=== PATIENT | male | born 1945 | race Caucasian/White ===

== ENCOUNTER 2019-03-21 10:55 | Inpatient (IN) | payer MEDICARE ==
[~2019-03-21] VITALS: Ht 177.8 cm; Wt 99.8 kg
[~2019-03-21 10:55] MED LIST: ALIGN4 MG PO; FISH OIL PO; FLOMAX0.4 MG PO; FLUDROCORTISON0.1 MG PO; FLUOXETINE PO; LEVOTHYROXINE50 MCG PO; MIDODRINE HCL5 MG PO; OXYBUTYNIN CHLOR5 MG PO; PRILOSEC PO
--- OUTSIDE RECORDS SUMMARY | 2019-03-21 11:02 | XMS REPORT ---
Author [facility] Address Unknown Phone Unavailable Care Team Providers Care Japanese Professor Name Role Phone LINDA LOZANO Unavailable Unavailable PELON ROSALINA Unavailable Unavailable Payers Payer Name Policy Type Policy Number Effective Date Expiration Date Problems This patient has no known problems. Allergies, Adverse Reactions, Alerts Allergy Name Allergy Type Status Severity Reaction(s) Onset Date Inactive Date Treating Clinician Comments diazepam DA Active MO 2018-05-19 00:00:00 hydrocodone DA Active SV 2018-05-19 00:00:00 tramadol DA Active SV 2018-05-19 00:00:00 hydromorphone DA Active U 2018-04-16 00:00:00 ceftriaxone DA Active MO 2017-12-22 00:00:00 Medications This patient has no known medications. Results Test Description Test Time Test Comments Text Results Atomic Results Result Comments CHEST 2 VIEWS 2019-03-20 17:02:00 [facility] [address] [place] [address] Patient Name: TAISHA VILLALTA MR #: [id number] : 1945 Age/Sex: 74/M Req #: [id number] [facility] Physician: Ordered by: LINDA LOZANO MD Report #: [id number] Location: OR Room/Bed: Procedure: [id number] DX/CHEST 2 VIEWS Exam Date: 03/20/19 Exam Time: 1550 REPORT STATUS: Signed EXAMINATION: CHEST 2 VIEWS INDICATION: Pre-operative COMPARISON: Chest radiograph of 08/15/2015 FINDINGS: LINES/TUBES:Right chest port with catheter tip in the superior vena cava. LUNGS:The lungs are well-inflated. No focal consolidation or pulmonary edema. PLEURA:No pleural effusion or pneumothorax. MEDIASTINUM:The cardiomediastinal silhouette appears normal in size and shape. Atherosclerotic calcifications of the thoracic aorta. BONES/SOFT TISSUES:No acute osseous injury. ABDOMEN:No free air under the diaphragm. IMPRESSION: No focal pneumonia or pulmonary edema. Signed by: Levi Bran MD on 03/20/2019 5:03 PM Dictated By: LEVI BRAN MD 02 Transcribed By: HMEA on 03/20/191702 COPY TO: LINDA LOZANO MD BRAIN/MENINGES 2019-02-02 16:59:00 RUN DATE: 02/02/19 [facility] PAGE 1 RUN TIME: 1659 Specimen Inquiry RUN USER: INTERFACE PATIENT: TAISHA VILLALTA LOC: DINA U #: [id number] AGE/SX: 74/M ROOM: [facility] RE01/29/19REG DR: Rosalina Mcnamara MD : 45 BED: A DIS: 02/01/19 STATUS: DIS IN TLOC: SPEC #: [id number] RECD: 01/29/19 STATUS: ANMOL RE #: [id number] MAYANK: 01/29/19 [facility] DR: Rosalina Mcnamara MD ENTERED: 01/29/19 SP TYPE: BRAIN OTHR DR: Higinio Leonardo MD ORDERED: GROSS COPIES TO: Rosalina Mcnamara MD [address] [place] [address] Higinio Leonardo MD [address] [place] [address] MARKERS: FROZEN SECTIONS PROCEDURES: GROSS (01/29/19) TISSUES: 1. PITUITARY GLAND, NOS - TUMOR 2. PITUITARY GLAND, NOS - TUMOR COMMENT The sections show a monomorphic proliferation of cells suggesting adenoma. The case was sent in consultation to Dr. Higinio Greer at [facility]. In his report he describes a monomorphic population of tumor cells with diffuse proliferation and focal pseudopapillary appearance. Focal fibrosis is noted. No adenohypophysial tissue is identified. Immunoperoxidase stains for prolactin, growth hormone, ACTH and TSH are reported to be negative in the tumor cells. Very rare cells are positive for p53. The MIB-1 labeling index is 1.6%. There is diffuse immunopositivity of tumor cells for FSH. 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 No atypical features are identified. FINAL DIAGNOSIS Pituitary, transsphenoidal hypophysectomy: GONADOTROPH CELL ADENOMA Higinio Greer MD [facility] CONTINUED ON NEXT PAGE RUN DATE: 02/02/19 [facility] PAGE 2 RUN TIME: 1659 Specimen Inquiry RUN USER: INTERFACE SPEC #: [id number] PATIENT: TAISHA VILLALAT #[id number] (Continued) FINAL DIAGNOSIS (Continued) RRB/chepe D 91046, 37295, 14949 MACROSCOPIC Specimen (1) is designated as "pituitary tumor". It consists of pink-li very soft tissue measuring 0.25 x 0.2 x 0.1 cm. A touch prep is made and the tissue is submitted in its entirety for frozen section evaluation (FS1). Pituitary tumor, frozen section and touch prep diagnosis: BLAND MONOMORPHIC PROLIFERATION WITH MILD FROZEN SECTION ARTIFACT, CONSISTENT WITH ADENOMA (RRB) Frozen section diagnosis (FS1): PROLIFERATION OF BLAND CELLS WITH MILD ARTIFACTUAL DISTORTION, DEFER TO PERMANENT The staining of the fresh frozen section is adequate. Specimen (2) is received in formalin, labeled with the patient's name, and identified as "pituitary tumor". It consists of li tissue fragments measuring 0.7 x 0.4 x 0.2 cm in aggregate. It is submitted for microscopic evaluation in cassette (2). GROSS PERFORMED AT [facility] [address] [place] [address] [id number] [phone])[phone] MICROSCOPIC This case was sent in consultation to Dr. Higinio Greer with [facility]. Refer to [facility] report [id number] for additional information. 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 No atypical features aer identified. MICROSCOPIC DESCRIPTION: Each of the microscopic slides confirms the presence of a monomorphic population of tumor cells with diffuse proliferation and focal pseudopapillary appearance. Focal fibrosis is also present within the tumor. No adenohypophysial tissue is identified. Immunoperoxidase stains for prolactin, growth hormone, ACTH and TSH are negative in tmor. Very rare tumor cells are postiive for p53. The MIB-1 labeling index is 1.6%. There is diffuse immunopositivity of tumor cells for FSH. Scattered positivie tumor cells, in the usual pattern of gonadotroph cell adenoma, are present throughout hte tumor. PERFORMING SITE Diagnosis performed at: [facility] [address] [place] [address] ------ Signed SIGNATURE ON FILE Cameron Saenz MD 02/02/19 1659 END OF REPORT TISSUE EXAM 2019-02-02 11:03:00 Surgical Pathology Report Case: [id number] Authorizing Provider: Higinio Greer MD Collected: 2019 1134 Ord ering Location: [facility] Laboratory Received: 2019 1135 Pathologist: Higinio Greer MD Specimen: Pituitary, Received 4 slides and 2 blocks from [facility], [place] label [id number] A. PITUITARY, TRANSSPHENOIDAL HYPOPHYSECTOMY (OUTSIDE SLIDE FOR CONSULTATION "[id number]"): - GONADOTROPH CELL ADENOMA, Signing Pathologist Direct Phone Line: [phone] signed by Higinio Greer MD on 02/02/2019 at 11:03 AMThe histopathologic features conform to a gonadotroph cell adenoma. No atypical features are identified.[id number] gentleman with recurrent pituitary macroadenoma. Patient has hhistory of elevated FSH, LH and prolactin levels.Outside slides for consultation ("[id number]")Received are 4 H&E stained slides labeled with patient's name and accession number( "[id number]"). Also received are 2 paraffin tissue blocks with the same accession number.also received is a 1 page consultation letter from Dr. Cameron Saenz MD, [facility] in [facility] referencing the same patient's name and accession number. lso received is a 2 page surgical pathology report with the same patient's name and accession number..Each of the microscopic slides confirms the presence of a monomorphic population of tumor cells with diffuse proliferation and focal pseudopapillary appearance. Focal fibrosis is also present within the tumor. No adenohypophysial tissue is identified. Immunoperoxidase stains for prolactin, growth hormone, ACTH and TSH are negative in tumor. Very rare tumor cells are positive for p53. The MIB-1 labeling index is 1.6%. There is diffuse immunopositivity of tumor cells for FSH. Scattered positive tumor cells, in the usual pattern of a gonadotroph cell adenoma, are present throughout the tumor. The interpretation of this case in cluded the use of immunohistochemistry or special stains.please see microscopic description for the list of individual stainsControl Slides Examined: In-house known positive controls were evaluated along with the test tissue. These control slides run alongside of the patients sample show appropriate staining. Internal positive and negative controls when available are evaluated Immunohistochemistry technical testing was performed at [facility], Pathology Laboratory where it was developed and its performance characteristics were determined. It has not been cleared or approved by the U.S. Food and Drug Administration. The FDA has determined that such clearance or approval is not necessary. The test is used for clinical purposes. It should not be regarded as investigational or for research. This laboratory is certified under the Clinical Laboratory Improvement Amendments of 1988 (CLIA-88) as qualified to perform high complexity clinical laboratory testing.Neoplastic cells are positive for LH and FSH and negative for ACTH, GH, prolactin, TSH and p53. Ki67 proliferation index of 3%. GLUBED 2019-02-01 13:06:00 GLUBED (test code=GLUBED) 145 mg/dL 74-106 Performed by certified catalyst concentration operator at [facility] BASIC METABOLIC [id number] 09:04:00* Test Item Value Reference Range Comments SODIUM (test code=NA) 140 mmol/L 136-145 POTASSIUM (test code=K) 4.4 mmol/L 3.5-5.1 CHLORIDE (test code=CL) 111.0 mmol/L 98-107 CARBON DIOXIDE (test code=CO2) 20.0 mmol/L 21-32 ANION GAP (test code=GAP) 13.4 10-20 GLUCOSE (test code=GLU) 60 mg/dL 74-106 BLOOD UREA NITROGEN (test code=BUN) 39 mg/dL 7-18 GLOMERULAR FILTRATION RATE (test code=GFR) 31 mL/min >=60 Estimated GFR by using Modified MDRD formula.Chronic kidney disease is defined as either kidney damageor GFR <60 mL/min/1.73 m2 for >3 months. CREATININE (test code=CREAT) 2.10 mg/dL 0.7-1.3 BUN/CREATININE RATIO (test code=BUN/CREA) 18.6 10-20 CALCIUM (test code=CA) 8.7 mg/dL 8.5-10.1 COMPREHENSIVE METABOLIC [id number] 09:04:00* Test Item Value Reference Range Comments TOTAL PROTEIN (test code=PROT) 6.6 gram/dL 6.4-8.2 ALBUMIN (test code=ALB) 2.5 g/dL 3.4-5.0 GLOBULIN (test code=GLOB) 4.1 gram/dL 2.7-4.2 ALBUMIN/GLOBULIN RATIO (test code=A/G) 0.6 0.75-1.50 BILIRUBIN TOTAL (test code=BILT) 0.20 mg/dL 0.0-1.0 SGOT/AST (test code=AST) 17 IUnit/L 15-37 SGPT/ALT (test code=ALT) 16 IUnit/L 12-78 ALKALINE PHOSPHATASE TOTAL (test code=ALKP) 104 IUnit/L 45-117 Note change in reference range due to change in reagent. [id number] 09:04:00* Test Item Value Reference Range Comments PHOSPHORUS (test code=PHOS) 3.5 mg/dL 2.5-4.9 [id number] 09:04:00* Test Item Value Reference Range Comments MAGNESIUM (test code=MAG) 2.4 mg/dL 1.8-2.4 BASIC METABOLIC [id number] 08:54:00* Test Item Value Reference Range Comments SODIUM (test code=NA) 140 mmol/L 136-145 POTASSIUM (test code=K) 4.4 mmol/L 3.5-5.1 CHLORIDE (test code=CL) 111.0 mmol/L 98-107 CARBON DIOXIDE (test code=CO2) mmol/L 21-32 ANION GAP (test code=GAP) 10-20 GLUCOSE (test code=GLU) mg/dL 74-106 BLOOD UREA NITROGEN (test code=BUN) mg/dL 7-18 GLOMERULAR FILTRATION RATE (test code=GFR) mL/min >=60 CREATININE (test code=CREAT) mg/dL 0.7-1.3 BUN/CREATININE RATIO (test code=BUN/CREA) 10-20 CALCIUM (test code=CA) mg/dL 8.5-10.1 COMPREHENSIVE METABOLIC [id number] 08:54:00* Test Item Value Reference Range Comments TOTAL PROTEIN (test code=PROT) gram/dL 6.4-8.2 ALBUMIN (test code=ALB) g/dL 3.4-5.0 GLOBULIN (test code=GLOB) gram/dL 2.7-4.2 ALBUMIN/GLOBULIN RATIO (test code=A/G) 0.75-1.50 BILIRUBIN TOTAL (test code=BILT) mg/dL 0.0-1.0 SGOT/AST (test code=AST) IUnit/L 15-37 SGPT/ALT (test code=ALT) IUnit/L 12-78 ALKALINE PHOSPHATASE TOTAL (test code=ALKP) IUnit/L 45-117 [id number] 08:54:00* Test Item Value Reference Range Comments PHOSPHORUS (test code=PHOS) mg/dL 2.5-4.9 [id number] 08:54:00* Test Item Value Reference Range Comments MAGNESIUM (test code=MAG) mg/dL 1.8-2.4 OSMOLALITY [id number] 05:33:00* Test Item Value Reference Range Comments OSMOLALITY SERUM (test code=OSMO) 308 mOsm/kg 275-295 BASIC METABOLIC [id number] 05:31:00* Test Item Value Reference Range Comments SODIUM (test code=NA) 140 mmol/L 136-145 POTASSIUM (test code=K) 4.8 mmol/L 3.5-5.1 CHLORIDE (test code=CL) 110.0 mmol/L 98-107 CARBON DIOXIDE (test code=CO2) 22.0 mmol/L 21-32 ANION GAP (test code=GAP) 12.8 10-20 GLUCOSE (test code=GLU) 135 mg/dL 74-106 BLOOD UREA NITROGEN (test code=BUN) 42 mg/dL 7-18 GLOMERULAR FILTRATION RATE (test code=GFR) 28 mL/min >=60 Estimated GFR by using Modified MDRD formula.Chronic kidney disease is defined as either kidney damageor GFR <60 mL/min/1.73 m2 for >3 months. CREATININE (test code=CREAT) 2.30 mg/dL 0.7-1.3 BUN/CREATININE RATIO (test code=BUN/CREA) 18.5 10-20 CALCIUM (test code=CA) 9.2 mg/dL 8.5-10.1 COMPREHENSIVE METABOLIC [id number] 05:31:00* Test Item Value Reference Range Comments TOTAL PROTEIN (test code=PROT) 7.1 gram/dL 6.4-8.2 ALBUMIN (test code=ALB) 2.6 g/dL 3.4-5.0 GLOBULIN (test code=GLOB) 4.5 gram/dL 2.7-4.2 ALBUMIN/GLOBULIN RATIO (test code=A/G) 0.6 0.75-1.50 BILIRUBIN TOTAL (test code=BILT) 0.20 mg/dL 0.0-1.0 SGOT/AST (test code=AST) 9 IUnit/L 15-37 SGPT/ALT (test code=ALT) 14 IUnit/L 12-78 ALKALINE PHOSPHATASE TOTAL (test code=ALKP) 95 IUnit/L 45-117 Note change in reference range due to change in reagent. [id number] 05:31:00* Test Item Value Reference Range Comments PHOSPHORUS (test code=PHOS) 3.2 mg/dL 2.5-4.9 [id number] 05:31:00* Test Item Value Reference Range Comments MAGNESIUM (test code=MAG) 2.2 mg/dL 1.8-2.4 BASIC METABOLIC [id number] 05:18:00* Test Item Value Reference Range Comments SODIUM (test code=NA) 140 mmol/L 136-145 POTASSIUM (test code=K) 4.8 mmol/L 3.5-5.1 CHLORIDE (test code=CL) 110.0 mmol/L 98-107 CARBON DIOXIDE (test code=CO2) mmol/L 21-32 ANION GAP (test code=GAP) 10-20 GLUCOSE (test code=GLU) mg/dL 74-106 BLOOD UREA NITROGEN (test code=BUN) mg/dL 7-18 GLOMERULAR FILTRATION RATE (test code=GFR) mL/min >=60 CREATININE (test code=CREAT) mg/dL 0.7-1.3 BUN/CREATININE RATIO (test code=BUN/CREA) 10-20 CALCIUM (test code=CA) mg/dL 8.5-10.1 COMPREHENSIVE METABOLIC [id number] 05:18:00* Test Item Value Reference Range Comments TOTAL PROTEIN (test code=PROT) gram/dL 6.4-8.2 ALBUMIN (test code=ALB) g/dL 3.4-5.0 GLOBULIN (test code=GLOB) gram/dL 2.7-4.2 ALBUMIN/GLOBULIN RATIO (test code=A/G) 0.75-1.50 BILIRUBIN TOTAL (test code=BILT) mg/dL 0.0-1.0 SGOT/AST (test code=AST) IUnit/L 15-37 SGPT/ALT (test code=ALT) IUnit/L 12-78 ALKALINE PHOSPHATASE TOTAL (test code=ALKP) IUnit/L 45-117 [id number] 05:18:00* Test Item Value Reference Range Comments PHOSPHORUS (test code=PHOS) mg/dL 2.5-4.9 [id number] 05:18:00* Test Item Value Reference Range Comments MAGNESIUM (test code=MAG) mg/dL 1.8-2.4 BASIC METABOLIC [id number] 11:24:00* Test Item Value Reference Range Comments SODIUM (test code=NA) 137 mmol/L 136-145 POTASSIUM (test code=K) 5.0 mmol/L 3.5-5.1 CHLORIDE (test code=CL) 108.0 mmol/L 98-107 CARBON DIOXIDE (test code=CO2) 19.0 mmol/L 21-32 ANION GAP (test code=GAP) 15.0 10-20 GLUCOSE (test code=GLU) 243 mg/dL 74-106 BLOOD UREA NITROGEN (test code=BUN) 35 mg/dL 7-18 GLOMERULAR FILTRATION RATE (test code=GFR) 29 mL/min >=60 Estimated GFR by using Modified MDRD formula.Chronic kidney disease is defined as either kidney damageor GFR <60 mL/min/1.73 m2 for >3 months. CREATININE (test code=CREAT) 2.20 mg/dL 0.7-1.3 BUN/CREATININE RATIO (test code=BUN/CREA) 15.8 10-20 CALCIUM (test code=CA) 8.9 mg/dL 8.5-10.1 [id number] 11:24:00* Test Item Value Reference Range Comments MAGNESIUM (test code=MAG) 2.1 mg/dL 1.8-2.4 BASIC METABOLIC [id number] 11:18:00* Test Item Value Reference Range Comments SODIUM (test code=NA) 137 mmol/L 136-145 POTASSIUM (test code=K) 5.0 mmol/L 3.5-5.1 CHLORIDE (test code=CL) 108.0 mmol/L 98-107 CARBON DIOXIDE (test code=CO2) mmol/L 21-32 ANION GAP (test code=GAP) 10-20 GLUCOSE (test code=GLU) mg/dL 74-106 BLOOD UREA NITROGEN (test code=BUN) mg/dL 7-18 GLOMERULAR FILTRATION RATE (test code=GFR) mL/min >=60 CREATININE (test code=CREAT) mg/dL 0.7-1.3 BUN/CREATININE RATIO (test code=BUN/CREA) 10-20 CALCIUM (test code=CA) 8.9 mg/dL 8.5-10.1 [id number] 11:18:00* Test Item Value Reference Range Comments MAGNESIUM (test code=MAG) mg/dL 1.8-2.4 BASIC METABOLIC [id number] 11:10:00* Test Item Value Reference Range Comments SODIUM (test code=NA) 140 mmol/L 136-145 POTASSIUM (test code=K) 4.7 mmol/L 3.5-5.1 CHLORIDE (test code=CL) 110.0 mmol/L 98-107 CARBON DIOXIDE (test code=CO2) 22.0 mmol/L 21-32 ANION GAP (test code=GAP) 12.7 10-20 GLUCOSE (test code=GLU) 76 mg/dL 74-106 BLOOD UREA NITROGEN (test code=BUN) 34 mg/dL 7-18 GLOMERULAR FILTRATION RATE (test code=GFR) 29 mL/min >=60 Estimated GFR by using Modified MDRD formula.Chronic kidney disease is defined as either kidney damageor GFR <60 mL/min/1.73 m2 for >3 months. CREATININE (test code=CREAT) 2.20 mg/dL 0.7-1.3 BUN/CREATININE RATIO (test code=BUN/CREA) 15.7 10-20 CALCIUM (test code=CA) 9.3 mg/dL 8.5-10.1 [id number] 11:10:00* Test Item Value Reference Range Comments ESTROGEN (test code=ESTRO) 102 pg/mL 40-115 Performed At: [address] [id number] Sanjai MD Ph:[phone] BASIC METABOLIC [id number] 06:12:00* Test Item Value Reference Range Comments SODIUM (test code=NA) 137 mmol/L 136-145 POTASSIUM (test code=K) 5.5 mmol/L 3.5-5.1 CHLORIDE (test code=CL) 108.0 mmol/L 98-107 CARBON DIOXIDE (test code=CO2) 21.0 mmol/L 21-32 ANION GAP (test code=GAP) 13.5 10-20 GLUCOSE (test code=GLU) 150 mg/dL 74-106 BLOOD UREA NITROGEN (test code=BUN) 33 mg/dL 7-18 GLOMERULAR FILTRATION RATE (test code=GFR) 29 mL/min >=60 Estimated GFR by using Modified MDRD formula.Chronic kidney disease is defined as either kidney damageor GFR <60 mL/min/1.73 m2 for >3 months. CREATININE (test code=CREAT) 2.20 mg/dL 0.7-1.3 BUN/CREATININE RATIO (test code=BUN/CREA) 15.3 10-20 CALCIUM (test code=CA) 8.7 mg/dL 8.5-10.1 BASIC METABOLIC [id number] 06:03:00* Test Item Value Reference Range Comments SODIUM (test code=NA) 137 mmol/L 136-145 POTASSIUM (test code=K) 5.5 mmol/L 3.5-5.1 CHLORIDE (test code=CL) 108.0 mmol/L 98-107 CARBON DIOXIDE (test code=CO2) mmol/L 21-32 ANION GAP (test code=GAP) 10-20 GLUCOSE (test code=GLU) mg/dL 74-106 BLOOD UREA NITROGEN (test code=BUN) mg/dL 7-18 GLOMERULAR FILTRATION RATE (test code=GFR) mL/min >=60 CREATININE (test code=CREAT) mg/dL 0.7-1.3 BUN/CREATININE RATIO (test code=BUN/CREA) 10-20 CALCIUM (test code=CA) mg/dL 8.5-10.1 OSMOLALITY [id number] 06:00:00* Test Item Value Reference Range Comments OSMOLALITY SERUM (test code=OSMO) 298 mOsm/kg 275-295 OSMOLALITY [id number] 23:28:00* Test Item Value Reference Range Comments OSMOLALITY SERUM (test code=OSMO) 301 mOsm/kg 275-295 T4 [id number] 15:29:00* Test Item Value Reference Range Comments T4 FREE (test code=T4F) 0.97 ng/dL 0.76-1.46 THYROID STIMULATING [id number] 15:29:00* Test Item Value Reference Range Comments THYROID STIMULATING HORMONE (test code=TSH) 0.053 uIU/mL 0.36-3.74 TSH REFERENCE RANGES: EUTHYROID: 0.35 - 4.3 mIU/mL HYPO : > 5.5 mIU/mL HYPER : < 0.35 mIU/mL [id number] 15:29:00* Test Item Value Reference Range Comments GLYCOSYLATED HEMOGLOBIN (HA1C) (test code=GLYHGB) 6.1 % HbA1 4.8-6.0 ESTIMATED AVERAGE GLUCOSE (test code=EAG) 128 MG/DL PROTHROMBIN [id number] 16:37:00* Test Item Value Reference Range Comments PROTHROMBIN TIME PATIENT (test code=PTP) 11.2 seconds 9.0-14.0 INTERNATIONAL NORMAL RATIO (test code=INR) 0.9 0.8-1.2 The therapeutic range for oral anticoagulant therapy formost indications is an international normalized ratio (INR)of between 2.0 and 3.0. The recommended therapeutic INRrange for various clinical situations is listed below: Clinical Situation INR range Pulmonary e mbolism treatment (2.0-3.0)Venous thrombosis treatmentVenous thrombosis prophylaxis (high risk surgery)Prevention of systemic embolism from: Acute myocardial infarction Valvular heart disease Atrial fibrillation Mechanical prosthetic heart valves (2.5-3.5) THROMBOPLASTIN TIME [id number] 16:37:00* Test Item Value Reference Range Comments THROMBOPLASTIN TIME PARTIAL (test code=PTT) 33.5 seconds 25.0-36.5 BASIC METABOLIC [id number] 16:33:00* Test Item Value Reference Range Comments SODIUM (test code=NA) 140 mmol/L 136-145 POTASSIUM (test code=K) 4.7 mmol/L 3.5-5.1 CHLORIDE (test code=CL) 110.0 mmol/L 98-107 CARBON DIOXIDE (test code=CO2) 22.0 mmol/L 21-32 ANION GAP (test code=GAP) 12.7 10-20 GLUCOSE (test code=GLU) 76 mg/dL 74-106 BLOOD UREA NITROGEN (test code=BUN) 34 mg/dL 7-18 GLOMERULAR FILTRATION RATE (test code=GFR) 29 mL/min >=60 Estimated GFR by using Modified MDRD formula.Chronic kidney disease is defined as either kidney damageor GFR <60 mL/min/1.73 m2 for >3 months. CREATININE (test code=CREAT) 2.20 mg/dL 0.7-1.3 BUN/CREATININE RATIO (test code=BUN/CREA) 15.7 10-20 CALCIUM (test code=CA) 9.3 mg/dL 8.5-10.1 [id number] 16:33:00* Test Item Value Reference Range Comments ESTROGEN (test code=ESTRO) pgram/mL BASIC METABOLIC [id number] 16:31:00* Test Item Value Reference Range Comments SODIUM (test code=NA) 140 mmol/L 136-145 POTASSIUM (test code=K) 4.7 mmol/L 3.5-5.1 CHLORIDE (test code=CL) 110.0 mmol/L 98-107 CARBON DIOXIDE (test code=CO2) mmol/L 21-32 ANION GAP (test code=GAP) 10-20 GLUCOSE (test code=GLU) mg/dL 74-106 BLOOD UREA NITROGEN (test code=BUN) mg/dL 7-18 GLOMERULAR FILTRATION RATE (test code=GFR) mL/min >=60 CREATININE (test code=CREAT) mg/dL 0.7-1.3 BUN/CREATININE RATIO (test code=BUN/CREA) 10-20 CALCIUM (test code=CA) 9.3 mg/dL 8.5-10.1 [id number] 16:31:00* Test Item Value Reference Range Comments ESTROGEN (test code=ESTRO) pgram/mL - XR CHEST 2 [id number] 16:09:00 FAX: Rosalina Esparza MD [phone] [place]: St: PRE FAX: Higinio Tinajero MD [phone] Name: TAISHA VILLALTA [facility] : 1945 Age/S: 73/M [address] [facility] Unit #: [id number] Loc: [place] [address] Phys: Rosalina Mcnamara MD Acct: [id number] Dis Date: Status: PRE IN PHONE #: [phone] Exam Date: 01/25/2019 1546 FAX #: [phone] Reason: PRE-OP EXAMS: CPT CODE: [id number] XR CHEST 2 V 93371 HISTORY: Preop. COMPARISON: June 26, 2018. AP and lateral view of the chest: Right Port-A-Cath with the tip projected over the SVC. No acute infiltrates, effusion or congestion. Dependent changes. Cardiomegaly. DJD of the dorsal spine. IMPRESSION: No acute infiltrates, effusion or congestion. at 1606 Reported and signed by: Chris Waters M.D. CC: Rosalina Mcnamara MD; Higinio Leonardo MD Technologist: ENMA Almaraz) Trnscrd Date/Time/By: 01/25/2019 (4028) : By: [email or web address] Orig Print D/T: S: 01/25/2019 (1438) PAGE 1 Signed Report CBC W/AUTO [id number] 16:03:00* Test Item Value Reference Range Comments WHITE BLOOD CELL (test code=WBC) 11.6 K/mm3 4.5-12.5 RED BLOOD CELL (test code=RBC) 4.71 mill/mm3 4.0-5.8 HEMOGLOBIN (test code=HGB) 11.9 gram/dL 13.0-17.5 HEMATOCRIT (test code=HCT) 38.6 % 42.0-52.0 MEAN CELL VOLUME (test code=MCV) 82.0 fL 80-98 MEAN CELL HGB (test code=MCH) 25.3 picogram 27.0-33.0 MEAN CELL HGB CONCETRATION (test code=MCHC) 30.8 gram/dL 33.0-36.0 RED CELL DISTRIBUTION WIDTH (test code=RDW) 18.4 % 11.6-16.2 RED CELL DISTRIBUTION WIDTH SD (test code=RDW-SD) 54.9 fL 37.0-51.0 PLATELET COUNT (test code=PLT) 410 K/mm3 150-450 MEAN PLATELET VOLUME (test code=MPV) 9.9 fL 6.7-11.0 NEUTROPHIL % (test code=NT%) 60.7 % 39.0-69.0 IMMATURE GRANULOCYTE % (test code=IG%) 0.4 % 0.0-5.0 LYMPHOCYTE % (test code=LY%) 22.8 % 25.0-55.0 MONOCYTE % (test code=MO%) 12.6 % 0.0-10.0 EOSINOPHIL % (test code=EO%) 2.6 % 0.0-5.0 BASOPHIL % (test code=BA%) 0.9 % 0.0-1.0 NUCLEATED RBC % (test code=NRBC%) 0.0 % 0-0 NEUTROPHIL # (test code=NT#) 7.04 K/mm3 1.8-7.7 IMMATURE GRANULOCYTE # (test code=IG#) 0.05 x10 3/uL 0-0.03 LYMPHOCYTE # (test code=LY#) 2.64 K/mm3 1.0-5.0 MONOCYTE # (test code=MO#) 1.46 K/mm3 0-0.8 EOSINOPHIL # (test code=EO#) 0.30 K/mm3 0.0-0.5 BASOPHIL # (test code=BA#) 0.11 K/mm3 0.0-0.2 NUCLEATED RBC # (test code=NRBC#) 0.00 K/mm3 0.0-0.1 MANUAL DIFF REQUIRED (test code=MDIFF) NO UR METANEPHRINES [id number] 12:14:00* Test Item Value Reference Range Comments UR METANEPHRINES (test code=METU) 25 ug/L Undefined This test was developed and its performance characteristicsdetermined by [employer]. It has not been cleared orapproved by the Food and Drug Administration. UR METANEPHRINES 24HR (test code=MET24T) 26 ug/24 hr 45-290 (Hypertensive) >17 years 11 months: 35 - 460Performed At: [address] [id number] Weaver MD Ph:[phone] NORMETANEPHRINE (test code=NORMET) 155 ug/L Undefined This test was developed and its performance characteristicsdetermined by [employer]. It has not been cleared orapproved by the Food and Drug Administration. NORMETANEPHRINE 24 HR (test code=NORMETUR) 163 ug/24 hr 82-500 (Hypertensive) >17 years 11 months: 110 - 1050 TOTAL VOLUME: 1050 MLADRENOCORTICOTROPIC [id number] 11:20:00* Test Item Value Reference Range Comments ADRENOCORTICOTROPIC HORMONE (test code=ACTH) 46.6 pg/mL 7.2-63.3 ACTH reference interval for samples collected between 7 and10 AM.Performed At: [address] [id number] Kyle L MD Ph:[phone] COMMENTS: Cortisol level immediately before administering Cosyntropin [id number] 11:20:00* Test Item Value Reference Range Comments ALDOSTERONE (test code=ALDOS) 1.5 ng/dL 0.0-30.0 This test was developed and its performance characteristicsdetermined by [employer]. It has not been cleared orapproved by the Food and Drug Administration.Performed At: [address] [id number] Weaver MD Ph:[phone] COMMENTS: Cortisol level immediately before administering Cosyntropin [id number] 11:20:00* Test Item Value Reference Range Comments CORTISOL (test code=CORTR) 9.6 ug/dL () Cortisol AM 6.2 - 19.4 Cortisol PM 2.3 - 11.9 COMMENTS: Cortisol level immediately before administering Cosyntropin IVLUTEINIZING [id number] 11:20:00* Test Item Value Reference Range Comments LUTEINIZING HORMONE (test code=LH) 11.2 mIU/mL 1.7-8.6 COMMENTS: Cortisol level immediately before administering Cosyntropin IVRENIN [id number] 11:20:00* Test Item Value Reference Range Comments RENIN ACTIVITY (test code=RENINA) 0.397 ng/mL/hr 0.167-5.380 This test was developed and its performance characteristicsdetermined by [employer]. It has not been cleared orapproved by the Food and Drug Administration.Performed At: [address] [id number] Weaver MD Ph:[phone] COMMENTS: Cortisol level immediately before administering Cosyntropin IVINSULIN-LIKE GROWTH FACTOR [id number] 11:20:00* Test Item Value Reference Range Comments INSULIN-LIKE GROWTH FACTOR I (test code=INSLKGF1) 170 ng/mL 41-179 Performed At: [address] [id number] Weaver MD Ph:[phone] COMMENTS: Cortisol level immediately before administering Cosyntropin IVTESTOSTERONE FREE AND [id number] 11:20:00* Test Item Value Reference Range Comments TESTOSTERONE TOTAL (test code=TESTTOT) 523 ng/dL 264-916 Adult male reference interval is based on a population ofhealthy nonobese males (BMI <30) between 19 and 39 yearsold. Calvin et.al. JCEM 2017,102;7787-2886. PMID:51454774. TESTOSTERONE (FREE) (test code=TESTF) 3.3 pg/mL 6.6-18.1 Performed At: [address] [id number] Kyle L MD Ph:[phone] At: [address] [place], [place] [id number] Weaver MD Ph:[phone] COMMENTS: Cortisol level immediately before administering Cosyntropin [id number] 11:20:00* Test Item Value Reference Range Comments PROLACTIN (test code=PROLAC) 21.3 ng/mL 4.0-15.2 Performed At: [address] [id number] Kyle L MD Ph:[phone] COMMENTS: Cortisol level immediately before administering Cosyntropin IVFOLLICLE STIMULATING [id number] 11:20:00* Test Item Value Reference Range Comments FOLLICLE STIMULATING HORMONE (test code=FSH) 16.6 mIU/mL 1.5-12.4 COMMENTS: Cortisol level immediately before administering Cosyntropin IVMETANEPHRINE FRA [id number] 11:20:00* Test Item Value Reference Range Comments NORMETANEPHRINE BLOOD (test code=NORMETAB) 58 pg/mL 0-145 This test was developed and its performance characteristicsdetermined by [employer]. It has not been cleared orapproved by the Food and Drug Administration. TOTAL METANEPHRINE BLOOD (test code=METATB) <10 pg/mL 0-62 This test was developed and its performance characteristicsdetermined by [employer]. It has not been cleared orapproved by the Food and Drug Administration.Concentrations of Normetanephrine between 146 and 487pg/mL, and Metanephrine between 63 and 255 pg/mL areconsidered indeterminate. Follow-up biochemical testing isrecommended when patient levels fall within thisindeterminate range. These tests include repeat testing ofplasma/urinary fractionated metanephrines and plasmacatecholamines.Performed At: [address] [id number] Weaver MD Ph:[phone] COMMENTS: Cortisol level immediately before administering Cosyntropin IVADRENOCORTICOTROPIC [id number] 06:16:00* Test Item Value Reference Range Comments ADRENOCORTICOTROPIC HORMONE (test code=ACTH) 46.6 pg/mL 7.2-63.3 ACTH reference interval for samples collected between 7 and10 AM.Performed At: [facility] [address] [place], [place] [id number] George Heaton MD Ph:[phone] COMMENTS: Cortisol level immediately before administering Cosyntropin [id number] 06:16:00* Test Item Value Reference Range Comments ALDOSTERONE (test code=ALDOS) 1.5 ng/dL 0.0-30.0 This test was developed and its performance characteristicsdetermined by [facility]. It has not been cleared orapproved by the Food and Drug Administration.Performed At: [address] [id number] Weaver MD Ph:[phone] COMMENTS: Cortisol level immediately before administering Cosyntropin [id number] 06:16:00* Test Item Value Reference Range Comments CORTISOL (test code=CORTR) 9.6 ug/dL () Cortisol AM 6.2 - 19.4 Cortisol PM 2.3 - 11.9 COMMENTS: Cortisol level immediately before administering Cosyntropin IVLUTEINIZING [id number] 06:16:00* Test Item Value Reference Range Comments LUTEINIZING HORMONE (test code=LH) 11.2 mIU/mL 1.7-8.6 COMMENTS: Cortisol level immediately before administering Cosyntropin IVRENIN [id number] 06:16:00* Test Item Value Reference Range Comments RENIN ACTIVITY (test code=RENINA) COMMENTS: Cortisol level immediately before administering Cosyntropin IVINSULIN-LIKE GROWTH FACTOR [id number] 06:16:00* Test Item Value Reference Range Comments INSULIN-LIKE GROWTH FACTOR I (test code=INSLKGF1) 170 ng/mL 41-179 Performed At: [address] [id number] Weaver MD Ph:[phone] COMMENTS: Cortisol level immediately before administering Cosyntropin IVTESTOSTERONE FREE AND [id number] 06:16:00* Test Item Value Reference Range Comments TESTOSTERONE TOTAL (test code=TESTTOT) 523 ng/dL 264-916 Adult male reference interval is based on a population ofhealthy nonobese males (BMI <30) between 19 and 39 yearsold. Calvin et.al. JCEM 2017,102;5154-1351. PMID:14347116. TESTOSTERONE (FREE) (test code=TESTF) 3.3 pg/mL 6.6-18.1 Performed At: [address] [id number] Heaton MD Ph:[phone] At: [address] [id number] Weaver MD Ph:[phone] COMMENTS: Cortisol level immediately before administering Cosyntropin [id number] 06:16:00* Test Item Value Reference Range Comments PROLACTIN (test code=PROLAC) 21.3 ng/mL 4.0-15.2 Performed At: [address] [id number] Heaton MD Ph:[phone] COMMENTS: Cortisol level immediately before administering Cosyntropin IVFOLLICLE STIMULATING [id number] 06:16:00* Test Item Value Reference Range Comments FOLLICLE STIMULATING HORMONE (test code=FSH) 16.6 mIU/mL 1.5-12.4 COMMENTS: Cortisol level immediately before administering Cosyntropin IVMETANEPHRINE FRA [id number] 06:16:00* Test Item Value Reference Range Comments NORMETANEPHRINE BLOOD (test code=NORMETAB) 58 pg/mL 0-145 This test was developed and its performance characteristicsdetermined by [employer]. It has not been cleared orapproved by the Food and Drug Administration. TOTAL METANEPHRINE BLOOD (test code=METATB) <10 pg/mL 0-62 This test was developed and its performance characteristicsdetermined by [facility]. It has not been cleared orapproved by the Food and Drug Administration.Concentrations of Normetanephrine between 146 and 487pg/mL, and Metanephrine between 63 and 255 pg/mL areconsidered indeterminate. Follow-up biochemical testing isrecommended when patient levels fall within thisindeterminate range. These tests include repeat testing ofplasma/urinary fractionated metanephrines and plasmacatecholamines.Performed At: [address] [id number] Weaver MD Ph:[phone] COMMENTS: Cortisol level immediately before administering Cosyntropin IVADRENOCORTICOTROPIC [id number] 04:11:00* Test Item Value Reference Range Comments ADRENOCORTICOTROPIC HORMONE (test code=ACTH) 46.6 pg/mL 7.2-63.3 ACTH reference interval for samples collected between 7 and10 AM.Performed At: [facility] [id number] Kyle L MD Ph:[phone] COMMENTS: Cortisol level immediately before administering Cosyntropin [id number] 04:11:00* Test Item Value Reference Range Comments ALDOSTERONE (test code=ALDOS) COMMENTS: Cortisol level immediately before administering Cosyntropin [id number] 04:11:00* Test Item Value Reference Range Comments CORTISOL (test code=CORTR) 9.6 ug/dL () Cortisol AM 6.2 - 19.4 Cortisol PM 2.3 - 11.9 COMMENTS: Cortisol level immediately before administering Cosyntropin IVLUTEINIZING [id number] 04:11:00* Test Item Value Reference Range Comments LUTEINIZING HORMONE (test code=LH) 11.2 mIU/mL 1.7-8.6 COMMENTS: Cortisol level immediately before administering Cosyntropin IVRENIN [id number] 04:11:00* Test Item Value Reference Range Comments RENIN ACTIVITY (test code=RENINA) COMMENTS: Cortisol level immediately before administering Cosyntropin IVINSULIN-LIKE GROWTH FACTOR [id number] 04:11:00* Test Item Value Reference Range Comments INSULIN-LIKE GROWTH FACTOR I (test code=INSLKGF1) 170 ng/mL 41-179 Performed At: [facility] [id number] Weaver MD Ph:[phone] COMMENTS: Cortisol level immediately before administering Cosyntropin IVTESTOSTERONE FREE AND [id number] 04:11:00* Test Item Value Reference Range Comments TESTOSTERONE TOTAL (test code=TESTTOT) 523 ng/dL 264-916 Adult male reference interval is based on a population ofhealthy nonobese males (BMI <30) between 19 and 39 yearsold. marcelina Simpson.al. JCEM 2017,102;9355-2066. PMID:74334773. TESTOSTERONE (FREE) (test code=TESTF) 3.3 pg/mL 6.6-18.1 Performed At: [address] [id number] Heaton MD Ph:[phone] At: [address] [id number] Weaver MD Ph:[phone] COMMENTS: Cortisol level immediately before administering Cosyntropin [id number] 04:11:00* Test Item Value Reference Range Comments PROLACTIN (test code=PROLAC) 21.3 ng/mL 4.0-15.2 Performed At: [address] [id number] Heaton MD Ph:[phone] COMMENTS: Cortisol level immediately before administering Cosyntropin IVFOLLICLE STIMULATING [id number] 04:11:00* Test Item Value Reference Range Comments FOLLICLE STIMULATING HORMONE (test code=FSH) 16.6 mIU/mL 1.5-12.4 COMMENTS: Cortisol level immediately before administering Cosyntropin IVMETANEPHRINE FRA [id number] 04:11:00* Test Item Value Reference Range Comments NORMETANEPHRINE BLOOD (test code=NORMETAB) 58 pg/mL 0-145 This test was developed and its performance characteristicsdetermined by [employer]. It has not been cleared orapproved by the Food and Drug Administration. TOTAL METANEPHRINE BLOOD (test code=METATB) <10 pg/mL 0-62 This test was developed and its performance characteristicsdetermined by [facility]. It has not been cleared orapproved by the Food and Drug Administration.Concentrations of Normetanephrine between 146 and 487pg/mL, and Metanephrine between 63 and 255 pg/mL areconsidered indeterminate. Follow-up biochemical testing isrecommended when patient levels fall within thisindeterminate range. These tests include repeat testing ofplasma/urinary fractionated metanephrines and plasmacatecholamines.Performed At: [address] [id number] Sanjai MD Ph:[phone] COMMENTS: Cortisol level immediately before administering Cosyntropin IVBASIC METABOLIC [id number] 07:38:00* Test Item Value Reference Range Comments SODIUM (test code=NA) 140 mEq/L 134-147 POTASSIUM (test code=K) 4.1 mEq/L 3.4-5.0 CHLORIDE (test code=CL) 109 mEq/L 100-108 CARBON DIOXIDE (test code=CO2) 24 mEq/L 21-33 ANION GAP (test code=GAP) 11 0-20 GLUCOSE (test code=GLU) 92 mg/dL 70-110 BLOOD UREA NITROGEN (test code=BUN) 34 mg/dL 7-18 GLOMERULAR FILTRATION RATE (test code=GFR) 42.6 70-80 Units of measure=ml/min/1.73 m2 CREATININE (test code=CREAT) 1.6 mg/dL 0.6-1.3 CALCIUM (test code=CA) 8.7 mg/dL 8.0-10.5 [id number] 07:38:00* Test Item Value Reference Range Comments MAGNESIUM (test code=MAG) 2.10 mg/dL 1.8-2.4 CBC W/AUTO [id number] 07:23:00* Test Item Value Reference Range Comments WHITE BLOOD CELL (test code=WBC) 15.19 x10 3/uL 4.5-11.0 RED BLOOD CELL (test code=RBC) 3.19 x10 6/uL 4.00-5.60 HEMOGLOBIN (test code=HGB) 9.6 g/dL 12.5-16.9 HEMATOCRIT (test code=HCT) 30.9 % 37.5-50.7 MEAN CELL VOLUME (test code=MCV) 96.9 fL 81.0-99.0 MEAN CELL HGB (test code=MCH) 30.1 pg 27.0-33.0 MEAN CELL HGB CONCETRATION (test code=MCHC) 31.1 g/dL 33.0-37.0 RED CELL DISTRIBUTION WIDTH CV (test code=RDW) 15.7 % 11.5-14.5 RED CELL DISTRIBUTION WIDTH SD (test code=RDW-SD) 55.8 fL 37.0-54.0 PLATELET COUNT (test code=PLT) 483 x10 3/uL 150-400 MEAN PLATELET VOLUME (test code=MPV) 10.3 fL 7.0-9.0 NEUTROPHIL % (test code=NT%) 70.1 % 56.0-77.0 IMMATURE GRANULOCYTE % (test code=IG%) 0.4 % 0.0-2.0 LYMPHOCYTE % (test code=LY%) 22.9 % 14.0-32.0 MONOCYTE % (test code=MO%) 6.2 % 4.8-9.0 EOSINOPHIL % (test code=EO%) 0.1 % 0.3-3.7 BASOPHIL % (test code=BA%) 0.3 % 0.0-2.0 NUCLEATED RBC % (test code=NRBC%) 0.0 % 0-0 NEUTROPHIL # (test code=NT#) 10.66 x10 3/uL 2.0-7.6 IMMATURE GRANULOCYTE # (test code=IG#) 0.06 x10 3/uL 0.00-0.03 LYMPHOCYTE # (test code=LY#) 3.48 x10 3/uL 1.0-3.8 MONOCYTE # (test code=MO#) 0.94 x10 3/uL 0.1-0.8 EOSINOPHIL # (test code=EO#) 0.01 x10 3/uL 0.0-0.2 BASOPHIL # (test code=BA#) 0.04 x10 3/uL 0.0-0.2 NUCLEATED RBC # (test code=NRBC#) 0.00 x10 3/uL 0.0-0.1 MANUAL DIFF REQUIRED (test code=MDIFF) NO ADRENOCORTICOTROPIC [id number] 14:10:00* Test Item Value Reference Range Comments ADRENOCORTICOTROPIC HORMONE (test code=ACTH) 46.6 pg/mL 7.2-63.3 ACTH reference interval for samples collected between 7 and10 AM.Performed At: [facility] [id number] George Heaton MD Ph:[phone] COMMENTS: Cortisol level immediately before administering Cosyntropin [id number] 14:10:00* Test Item Value Reference Range Comments ALDOSTERONE (test code=ALDOS) COMMENTS: Cortisol level immediately before administering Cosyntropin [id number] 14:10:00* Test Item Value Reference Range Comments CORTISOL (test code=CORTR) 9.6 ug/dL () Cortisol AM 6.2 - 19.4 Cortisol PM 2.3 - 11.9 COMMENTS: Cortisol level immediately before administering Cosyntropin IVLUTEINIZING [id number] 14:10:00* Test Item Value Reference Range Comments LUTEINIZING HORMONE (test code=LH) 11.2 mIU/mL 1.7-8.6 COMMENTS: Cortisol level immediately before administering Cosyntropin IVRENIN [id number] 14:10:00* Test Item Value Reference Range Comments RENIN ACTIVITY (test code=RENINA) COMMENTS: Cortisol level immediately before administering Cosyntropin IVINSULIN-LIKE GROWTH FACTOR [id number] 14:10:00* Test Item Value Reference Range Comments INSULIN-LIKE GROWTH FACTOR I (test code=INSLKGF1) 170 ng/mL 41-179 Performed At: [facility] [id number] Weaver MD Ph:[phone] COMMENTS: Cortisol level immediately before administering Cosyntropin IVTESTOSTERONE FREE AND [id number] 14:10:00* Test Item Value Reference Range Comments TESTOSTERONE TOTAL (test code=TESTTOT) 523 ng/dL 264-916 Adult male reference interval is based on a population ofhealthy nonobese males (BMI <30) between 19 and 39 yearsold. Calvin et.al. JCEM 2017,102;5350-7788. PMID:78351014. TESTOSTERONE (FREE) (test code=TESTF) 3.3 pg/mL 6.6-18.1 Performed At: [facility] [id number] Kyle L MD Ph:[phone] At: [address] [id number] Weaver MD Ph:[phone] COMMENTS: Cortisol level immediately before administering Cosyntropin [id number] 14:10:00* Test Item Value Reference Range Comments PROLACTIN (test code=PROLAC) 21.3 ng/mL 4.0-15.2 Performed At: [address] [id number] Kyle L MD Ph:[phone] COMMENTS: Cortisol level immediately before administering Cosyntropin IVFOLLICLE STIMULATING [id number] 14:10:00* Test Item Value Reference Range Comments FOLLICLE STIMULATING HORMONE (test code=FSH) 16.6 mIU/mL 1.5-12.4 COMMENTS: Cortisol level immediately before administering Cosyntropin IVMETANEPHRINE FRAC [id number] 14:10:00* Test Item Value Reference Range Comments NORMETANEPHRINE BLOOD (test code=NORMETAB) TOTAL METANEPHRINE BLOOD (test code=METATB) COMMENTS: Cortisol level immediately before administering Cosyntropin IVADRENOCORTICOTROPIC [id number] 09:13:00* Test Item Value Reference Range Comments ADRENOCORTICOTROPIC HORMONE (test code=ACTH) 46.6 pg/mL 7.2-63.3 ACTH reference interval for samples collected between 7 and10 AM.Performed At: [address] [id number] Heaton MD Ph:[phone] COMMENTS: Cortisol level immediately before administering Cosyntropin [id number] 09:13:00* Test Item Value Reference Range Comments ALDOSTERONE (test code=ALDOS) COMMENTS: Cortisol level immediately before administering Cosyntropin [id number] 09:13:00* Test Item Value Reference Range Comments CORTISOL (test code=CORTR) 9.6 ug/dL () Cortisol AM 6.2 - 19.4 Cortisol PM 2.3 - 11.9 COMMENTS: Cortisol level immediately before administering Cosyntropin IVLUTEINIZING [id number] 09:13:00* Test Item Value Reference Range Comments LUTEINIZING HORMONE (test code=LH) 11.2 mIU/mL 1.7-8.6 COMMENTS: Cortisol level immediately before administering Cosyntropin IVRENIN [id number] 09:13:00* Test Item Value Reference Range Comments RENIN ACTIVITY (test code=RENINA) COMMENTS: Cortisol level immediately before administering Cosyntropin IVINSULIN-LIKE GROWTH FACTOR [id number] 09:13:00* Test Item Value Reference Range Comments INSULIN-LIKE GROWTH FACTOR I (test code=INSLKGF1) COMMENTS: Cortisol level immediately before administering Cosyntropin IVTESTOSTERONE FREE AND [id number] 09:13:00* Test Item Value Reference Range Comments TESTOSTERONE TOTAL (test code=TESTTOT) 523 ng/dL 264-916 Adult male reference interval is based on a population ofhealthy nonobese males (BMI <30) between 19 and 39 yearsold. Calvin et.al. JCEM 2017,102;6189-7305. PMID:10820170. TESTOSTERONE (FREE) (test code=TESTF) 3.3 pg/mL 6.6-18.1 Performed At: [facility] [address] [id number] Heaton MD Ph:[phone] At: [facility] [id number] Sanjai MD Ph:[phone] COMMENTS: Cortisol level immediately before administering Cosyntropin [id number] 09:13:00* Test Item Value Reference Range Comments PROLACTIN (test code=PROLAC) 21.3 ng/mL 4.0-15.2 Performed At: [facility] [address] [id number] Heaton MD Ph:[phone] COMMENTS: Cortisol level immediately before administering Cosyntropin IVFOLLICLE STIMULATING [id number] 09:13:00* Test Item Value Reference Range Comments FOLLICLE STIMULATING HORMONE (test code=FSH) 16.6 mIU/mL 1.5-12.4 COMMENTS: Cortisol level immediately before administering Cosyntropin IVMETANEPHRINE [facility] [id number] 09:13:00* Test Item Value Reference Range Comments NORMETANEPHRINE BLOOD (test code=NORMETAB) TOTAL METANEPHRINE BLOOD (test code=METATB) COMMENTS: Cortisol level immediately before administering Cosyntropin IVT4 [id number] 08:52:00* Test Item Value Reference Range Comments T4 FREE (test code=T4F) 0.4 ng/dL 0.77-1.61 THYROID STIMULATING [id number] 08:52:00* Test Item Value Reference Range Comments THYROID STIMULATING HORMONE (test code=TSH) 31.40 0.42-5.47 Results in ekaterina- International Units/mL ADRENOCORTICOTROPIC [id number] 14:18:00* Test Item Value Reference Range Comments ADRENOCORTICOTROPIC HORMONE (test code=ACTH) 46.6 pg/mL 7.2-63.3 ACTH reference interval for samples collected between 7 and10 AM.Performed At: [facility] [address] [id number] George Heaton MD Ph:[phone] COMMENTS: Cortisol level immediately before administering Cosyntropin [id number] 14:18:00* Test Item Value Reference Range Comments ALDOSTERONE (test code=ALDOS) COMMENTS: Cortisol level immediately before administering Cosyntropin [id number] 14:18:00* Test Item Value Reference Range Comments CORTISOL (test code=CORTR) 9.6 ug/dL () Cortisol AM 6.2 - 19.4 Cortisol PM 2.3 - 11.9 COMMENTS: Cortisol level immediately before administering Cosyntropin IVLUTEINIZING [id number] 14:18:00* Test Item Value Reference Range Comments LUTEINIZING HORMONE (test code=LH) 11.2 mIU/mL 1.7-8.6 COMMENTS: Cortisol level immediately before administering Cosyntropin IVRENIN [id number] 14:18:00* Test Item Value Reference Range Comments RENIN ACTIVITY (test code=RENINA) COMMENTS: Cortisol level immediately before administering Cosyntropin IVINSULIN-LIKE GROWTH FACTOR [id number] 14:18:00* Test Item Value Reference Range Comments INSULIN-LIKE GROWTH FACTOR I (test code=INSLKGF1) COMMENTS: Cortisol level immediately before administering Cosyntropin IVTESTOSTERONE FREE AND [id number] 14:18:00* Test Item Value Reference Range Comments TESTOSTERONE TOTAL (test code=TESTTOT) TESTOSTERONE (FREE) (test code=TESTF) COMMENTS: Cortisol level immediately before administering Cosyntropin [id number] 14:18:00* Test Item Value Reference Range Comments PROLACTIN (test code=PROLAC) 21.3 ng/mL 4.0-15.2 Performed At: [facility] [id number] Heaton MD Ph:[phone] COMMENTS: Cortisol level immediately before administering Cosyntropin IVFOLLICLE STIMULATING [id number] 14:18:00* Test Item Value Reference Range Comments FOLLICLE STIMULATING HORMONE (test code=FSH) 16.6 mIU/mL 1.5-12.4 COMMENTS: Cortisol level immediately before administering Cosyntropin IVMETANEPHRINE FRAC [id number] 14:18:00* Test Item Value Reference Range Comments NORMETANEPHRINE BLOOD (test code=NORMETAB) TOTAL METANEPHRINE BLOOD (test code=METATB) COMMENTS: Cortisol level immediately before administering Cosyntropin [id number] 09:19:00* Test Item Value Reference Range Comments CORTISOL (test code=CORTR) 18.6 ug/dL () Cortisol AM 6.2 - 19.4 Cortisol PM 2.3 - 11.9Performed At: [address] [id number] Heaton MD Ph:[phone] COMMENTS: Cortisol level 1 hr s/p cosyntropin [id number] 05:14:00* Test Item Value Reference Range Comments CORTISOL (test code=CORTR) 16.2 ug/dL () Cortisol AM 6.2 - 19.4 Cortisol PM 2.3 - 11.9Performed At: [address] [id number] Heaton MD Ph:[phone] COMMENTS: Cortisol level 30 min s/p cosyntropin injectionADRENOCORTICOTROPIC [id number] 05:14:00* Test Item Value Reference Range Comments ADRENOCORTICOTROPIC HORMONE (test code=ACTH) COMMENTS: Cortisol level immediately before administering Cosyntropin [id number] 05:14:00* Test Item Value Reference Range Comments ALDOSTERONE (test code=ALDOS) COMMENTS: Cortisol level immediately before administering Cosyntropin [id number] 05:14:00* Test Item Value Reference Range Comments CORTISOL (test code=CORTR) 9.6 ug/dL () Cortisol AM 6.2 - 19.4 Cortisol PM 2.3 - 11.9 COMMENTS: Cortisol level immediately before administering Cosyntropin IVLUTEINIZING [id number] 05:14:00* Test Item Value Reference Range Comments LUTEINIZING HORMONE (test code=LH) mIU/mL COMMENTS: Cortisol level immediately before administering Cosyntropin IVRENIN [id number] 05:14:00* Test Item Value Reference Range Comments RENIN ACTIVITY (test code=RENINA) COMMENTS: Cortisol level immediately before administering Cosyntropin IVINSULIN-LIKE GROWTH FACTOR [id number] 05:14:00* Test Item Value Reference Range Comments INSULIN-LIKE GROWTH FACTOR I (test code=INSLKGF1) COMMENTS: Cortisol level immediately before administering Cosyntropin IVTESTOSTERONE FREE AND [id number] 05:14:00* Test Item Value Reference Range Comments TESTOSTERONE TOTAL (test code=TESTTOT) TESTOSTERONE (FREE) (test code=TESTF) COMMENTS: Cortisol level immediately before administering Cosyntropin [id number] 05:14:00* Test Item Value Reference Range Comments PROLACTIN (test code=PROLAC) COMMENTS: Cortisol level immediately before administering Cosyntropin IVFOLLICLE STIMULATING [id number] 05:14:00* Test Item Value Reference Range Comments FOLLICLE STIMULATING HORMONE (test code=FSH) mIU/mL COMMENTS: Cortisol level immediately before administering Cosyntropin IVMETANEPHRINE FRAC [id number] 05:14:00* Test Item Value Reference Range Comments NORMETANEPHRINE BLOOD (test code=NORMETAB) TOTAL METANEPHRINE BLOOD (test code=METATB) COMMENTS: Cortisol level immediately before administering Cosyntropin IVADRENOCORTICOTROPIC [id number] 05:14:00* Test Item Value Reference Range Comments ADRENOCORTICOTROPIC HORMONE (test code=ACTH) COMMENTS: Cortisol level immediately before administering Cosyntropin [id number] 05:14:00* Test Item Value Reference Range Comments ALDOSTERONE (test code=ALDOS) COMMENTS: Cortisol level immediately before administering Cosyntropin [id number] 05:14:00* Test Item Value Reference Range Comments CORTISOL (test code=CORTR) 9.6 ug/dL () Cortisol AM 6.2 - 19.4 Cortisol PM 2.3 - 11.9 COMMENTS: Cortisol level immediately before administering Cosyntropin IVLUTEINIZING [id number] 05:14:00* Test Item Value Reference Range Comments LUTEINIZING HORMONE (test code=LH) 11.2 mIU/mL 1.7-8.6 COMMENTS: Cortisol level immediately before administering Cosyntropin IVRENIN [id number] 05:14:00* Test Item Value Reference Range Comments RENIN ACTIVITY (test code=RENINA) COMMENTS: Cortisol level immediately before administering Cosyntropin IVINSULIN-LIKE GROWTH FACTOR [id number] 05:14:00* Test Item Value Reference Range Comments INSULIN-LIKE GROWTH FACTOR I (test code=INSLKGF1) COMMENTS: Cortisol level immediately before administering Cosyntropin IVTESTOSTERONE FREE AND [id number] 05:14:00* Test Item Value Reference Range Comments TESTOSTERONE TOTAL (test code=TESTTOT) TESTOSTERONE (FREE) (test code=TESTF) COMMENTS: Cortisol level immediately before administering Cosyntropin [id number] 05:14:00* Test Item Value Reference Range Comments PROLACTIN (test code=PROLAC) COMMENTS: Cortisol level immediately before administering Cosyntropin IVFOLLICLE STIMULATING [id number] 05:14:00* Test Item Value Reference Range Comments FOLLICLE STIMULATING HORMONE (test code=FSH) mIU/mL COMMENTS: Cortisol level immediately before administering Cosyntropin IVMETANEPHRINE FRAC [id number] 05:14:00* Test Item Value Reference Range Comments NORMETANEPHRINE BLOOD (test code=NORMETAB) TOTAL METANEPHRINE BLOOD (test code=METATB) COMMENTS: Cortisol level immediately before administering Cosyntropin IVADRENOCORTICOTROPIC [id number] 05:14:00* Test Item Value Reference Range Comments ADRENOCORTICOTROPIC HORMONE (test code=ACTH) COMMENTS: Cortisol level immediately before administering Cosyntropin [id number] 05:14:00* Test Item Value Reference Range Comments ALDOSTERONE (test code=ALDOS) COMMENTS: Cortisol level immediately before administering Cosyntropin [id number] 05:14:00* Test Item Value Reference Range Comments CORTISOL (test code=CORTR) 9.6 ug/dL () Cortisol AM 6.2 - 19.4 Cortisol PM 2.3 - 11.9 COMMENTS: Cortisol level immediately before administering Cosyntropin IVLUTEINIZING [id number] 05:14:00* Test Item Value Reference Range Comments LUTEINIZING HORMONE (test code=LH) 11.2 mIU/mL 1.7-8.6 COMMENTS: Cortisol level immediately before administering Cosyntropin IVRENIN [id number] 05:14:00* Test Item Value Reference Range Comments RENIN ACTIVITY (test code=RENINA) COMMENTS: Cortisol level immediately before administering Cosyntropin IVINSULIN-LIKE GROWTH FACTOR [id number] 05:14:00* Test Item Value Reference Range Comments INSULIN-LIKE GROWTH FACTOR I (test code=INSLKGF1) COMMENTS: Cortisol level immediately before administering Cosyntropin IVTESTOSTERONE FREE AND [id number] 05:14:00* Test Item Value Reference Range Comments TESTOSTERONE TOTAL (test code=TESTTOT) TESTOSTERONE (FREE) (test code=TESTF) COMMENTS: Cortisol level immediately before administering Cosyntropin [id number] 05:14:00* Test Item Value Reference Range Comments PROLACTIN (test code=PROLAC) COMMENTS: Cortisol level immediately before administering Cosyntropin IVFOLLICLE STIMULATING [id number] 05:14:00* Test Item Value Reference Range Comments FOLLICLE STIMULATING HORMONE (test code=FSH) 16.6 mIU/mL 1.5-12.4 COMMENTS: Cortisol level immediately before administering Cosyntropin IVMETANEPHRINE FRAC [id number] 05:14:00* Test Item Value Reference Range Comments NORMETANEPHRINE BLOOD (test code=NORMETAB) TOTAL METANEPHRINE BLOOD (test code=METATB) COMMENTS: Cortisol level immediately before administering Cosyntropin IVADRENOCORTICOTROPIC [id number] 05:14:00* Test Item Value Reference Range Comments ADRENOCORTICOTROPIC HORMONE (test code=ACTH) COMMENTS: Cortisol level immediately before administering Cosyntropin [id number] 05:14:00* Test Item Value Reference Range Comments ALDOSTERONE (test code=ALDOS) COMMENTS: Cortisol level immediately before administering Cosyntropin [id number] 05:14:00* Test Item Value Reference Range Comments CORTISOL (test code=CORTR) 9.6 ug/dL () Cortisol AM 6.2 - 19.4 Cortisol PM 2.3 - 11.9 COMMENTS: Cortisol level immediately before administering Cosyntropin IVLUTEINIZING [id number] 05:14:00* Test Item Value Reference Range Comments LUTEINIZING HORMONE (test code=LH) 11.2 mIU/mL 1.7-8.6 COMMENTS: Cortisol level immediately before administering Cosyntropin IVRENIN [id number] 05:14:00* Test Item Value Reference Range Comments RENIN ACTIVITY (test code=RENINA) COMMENTS: Cortisol level immediately before administering Cosyntropin IVINSULIN-LIKE GROWTH FACTOR [id number] 05:14:00* Test Item Value Reference Range Comments INSULIN-LIKE GROWTH FACTOR I (test code=INSLKGF1) COMMENTS: Cortisol level immediately before administering Cosyntropin IVTESTOSTERONE FREE AND [id number] 05:14:00* Test Item Value Reference Range Comments TESTOSTERONE TOTAL (test code=TESTTOT) TESTOSTERONE (FREE) (test code=TESTF) COMMENTS: Cortisol level immediately before administering Cosyntropin [id number] 05:14:00* Test Item Value Reference Range Comments PROLACTIN (test code=PROLAC) 21.3 ng/mL 4.0-15.2 Performed At: [facility] [id number] Kyle L MD Ph:[phone] COMMENTS: Cortisol level immediately before administering Cosyntropin IVFOLLICLE STIMULATING [id number] 05:14:00* Test Item Value Reference Range Comments FOLLICLE STIMULATING HORMONE (test code=FSH) 16.6 mIU/mL 1.5-12.4 COMMENTS: Cortisol level immediately before administering Cosyntropin IVMETANEPHRINE FRAC [id number] 05:14:00* Test Item Value Reference Range Comments NORMETANEPHRINE BLOOD (test code=NORMETAB) TOTAL METANEPHRINE BLOOD (test code=METATB) COMMENTS: Cortisol level immediately before administering Cosyntropin IVT4 [id number] 15:08:00* Test Item Value Reference Range Comments T4 FREE (test code=T4F) 0.4 ng/dL 0.77-1.61 THYROID STIMULATING [id number] 15:08:00* Test Item Value Reference Range Comments THYROID STIMULATING HORMONE (test code=TSH) 72.00 0.42-5.47 Results in [place]- International Units/mL CBC W/AUTO [id number] 09:28:00* Test Item Value Reference Range Comments WHITE BLOOD CELL (test code=WBC) 10.63 x10 3/uL 4.5-11.0 RED BLOOD CELL (test code=RBC) 3.26 x10 6/uL 4.00-5.60 HEMOGLOBIN (test code=HGB) 9.9 g/dL 12.5-16.9 HEMATOCRIT (test code=HCT) 31.3 % 37.5-50.7 MEAN CELL VOLUME (test code=MCV) 96.0 fL 81.0-99.0 MEAN CELL HGB (test code=MCH) 30.4 pg 27.0-33.0 MEAN CELL HGB CONCETRATION (test code=MCHC) 31.6 g/dL 33.0-37.0 RED CELL DISTRIBUTION WIDTH CV (test code=RDW) 15.3 % 11.5-14.5 RED CELL DISTRIBUTION WIDTH SD (test code=RDW-SD) 53.1 fL 37.0-54.0 PLATELET COUNT (test code=PLT) 549 x10 3/uL 150-400 MEAN PLATELET VOLUME (test code=MPV) 9.8 fL 7.0-9.0 NEUTROPHIL % (test code=NT%) 48.8 % 56.0-77.0 IMMATURE GRANULOCYTE % (test code=IG%) 0.4 % 0.0-2.0 LYMPHOCYTE % (test code=LY%) 32.8 % 14.0-32.0 MONOCYTE % (test code=MO%) 10.3 % 4.8-9.0 EOSINOPHIL % (test code=EO%) 6.6 % 0.3-3.7 BASOPHIL % (test code=BA%) 1.1 % 0.0-2.0 NUCLEATED RBC % (test code=NRBC%) 0.0 % 0-0 NEUTROPHIL # (test code=NT#) 5.18 x10 3/uL 2.0-7.6 IMMATURE GRANULOCYTE # (test code=IG#) 0.04 x10 3/uL 0.00-0.03 LYMPHOCYTE # (test code=LY#) 3.49 x10 3/uL 1.0-3.8 MONOCYTE # (test code=MO#) 1.10 x10 3/uL 0.1-0.8 EOSINOPHIL # (test code=EO#) 0.70 x10 3/uL 0.0-0.2 BASOPHIL # (test code=BA#) 0.12 x10 3/uL 0.0-0.2 NUCLEATED RBC # (test code=NRBC#) 0.00 x10 3/uL 0.0-0.1 MANUAL DIFF REQUIRED (test code=MDIFF) NO BASIC METABOLIC [id number] 07:57:00* Test Item Value Reference Range Comments SODIUM (test code=NA) 139 mEq/L 134-147 POTASSIUM (test code=K) 4.3 mEq/L 3.4-5.0 CHLORIDE (test code=CL) 107 mEq/L 100-108 CARBON DIOXIDE (test code=CO2) 25 mEq/L 21-33 ANION GAP (test code=GAP) 11 0-20 GLUCOSE (test code=GLU) 73 mg/dL 70-110 BLOOD UREA NITROGEN (test code=BUN) 28 mg/dL 7-18 GLOMERULAR FILTRATION RATE (test code=GFR) 37.2 70-80 Units of measure=ml/min/1.73 m2 CREATININE (test code=CREAT) 1.8 mg/dL 0.6-1.3 CALCIUM (test code=CA) 9.8 mg/dL 8.0-10.5 BASIC METABOLIC [id number] 11:01:00* Test Item Value Reference Range Comments SODIUM (test code=NA) 137 mEq/L 134-147 POTASSIUM (test code=K) 4.9 mEq/L 3.4-5.0 CHLORIDE (test code=CL) 106 mEq/L 100-108 CARBON DIOXIDE (test code=CO2) 26 mEq/L 21-33 ANION GAP (test code=GAP) 10 0-20 GLUCOSE (test code=GLU) 88 mg/dL 70-110 BLOOD UREA NITROGEN (test code=BUN) 31 mg/dL 7-18 GLOMERULAR FILTRATION RATE (test code=GFR) 31.1 70-80 Units of measure=ml/min/1.73 m2 CREATININE (test code=CREAT) 2.1 mg/dL 0.6-1.3 CALCIUM (test code=CA) 9.6 mg/dL 8.0-10.5 [id number] 11:01:00* Test Item Value Reference Range Comments MAGNESIUM (test code=MAG) 2.10 mg/dL 1.8-2.4 BASIC METABOLIC [id number] 06:35:00* Test Item Value Reference Range Comments SODIUM (test code=NA) 139 mEq/L 134-147 POTASSIUM (test code=K) 4.9 mEq/L 3.4-5.0 CHLORIDE (test code=CL) 110 mEq/L 100-108 CARBON DIOXIDE (test code=CO2) 23 mEq/L 21-33 ANION GAP (test code=GAP) 11 0-20 GLUCOSE (test code=GLU) 83 mg/dL 70-110 BLOOD UREA NITROGEN (test code=BUN) 32 mg/dL 7-18 GLOMERULAR FILTRATION RATE (test code=GFR) 32.9 70-80 Units of measure=ml/min/1.73 m2 CREATININE (test code=CREAT) 2.0 mg/dL 0.6-1.3 CALCIUM (test code=CA) 9.2 mg/dL 8.0-10.5 [id number] 06:35:00* Test Item Value Reference Range Comments MAGNESIUM (test code=MAG) 2.30 mg/dL 1.8-2.4 CBC W/AUTO [id number] 06:00:00* Test Item Value Reference Range Comments WHITE BLOOD CELL (test code=WBC) 9.54 x10 3/uL 4.5-11.0 RED BLOOD CELL (test code=RBC) 3.26 x10 6/uL 4.00-5.60 HEMOGLOBIN (test code=HGB) 9.9 g/dL 12.5-16.9 HEMATOCRIT (test code=HCT) 30.8 % 37.5-50.7 MEAN CELL VOLUME (test code=MCV) 94.5 fL 81.0-99.0 MEAN CELL HGB (test code=MCH) 30.4 pg 27.0-33.0 MEAN CELL HGB CONCETRATION (test code=MCHC) 32.1 g/dL 33.0-37.0 RED CELL DISTRIBUTION WIDTH CV (test code=RDW) 15.2 % 11.5-14.5 RED CELL DISTRIBUTION WIDTH SD (test code=RDW-SD) 52.8 fL 37.0-54.0 PLATELET COUNT (test code=PLT) 434 x10 3/uL 150-400 MEAN PLATELET VOLUME (test code=MPV) 9.3 fL 7.0-9.0 NEUTROPHIL % (test code=NT%) 43.7 % 56.0-77.0 IMMATURE GRANULOCYTE % (test code=IG%) 0.4 % 0.0-2.0 LYMPHOCYTE % (test code=LY%) 33.6 % 14.0-32.0 MONOCYTE % (test code=MO%) 15.4 % 4.8-9.0 EOSINOPHIL % (test code=EO%) 5.9 % 0.3-3.7 BASOPHIL % (test code=BA%) 1.0 % 0.0-2.0 NUCLEATED RBC % (test code=NRBC%) 0.0 % 0-0 NEUTROPHIL # (test code=NT#) 4.16 x10 3/uL 2.0-7.6 IMMATURE GRANULOCYTE # (test code=IG#) 0.04 x10 3/uL 0.00-0.03 LYMPHOCYTE # (test code=LY#) 3.21 x10 3/uL 1.0-3.8 MONOCYTE # (test code=MO#) 1.47 x10 3/uL 0.1-0.8 EOSINOPHIL # (test code=EO#) 0.56 x10 3/uL 0.0-0.2 BASOPHIL # (test code=BA#) 0.10 x10 3/uL 0.0-0.2 NUCLEATED RBC # (test code=NRBC#) 0.00 x10 3/uL 0.0-0.1 MANUAL DIFF REQUIRED (test code=MDIFF) NO PROTHROMBIN [id number] 07:18:00* Test Item Value Reference Range Comments PROTHROMBIN TIME PATIENT (test code=PTP) 12.1 SECONDS 9.3-12.9 INTERNATIONAL NORMAL RATIO (test code=INR) 1.1 0.8-1.2 TARGET INR BY INDICATION Indication INR1. Prophylaxis of venous thrombosis 2.0 - 3.0 (orthopedic surgery), Prophylaxis of venous thrombosis (other than high-risk surgery), Treatment of Deep Vein Thrombosis/Pulmonary Embolism, Prevention of systemic embolism - Tissue heart valves, Acute Myocardial Infarction (to prevent systemic embolism), Valvular heart disease, Atrial Fibrillation, Bileaflet mechanical valve in aortic position.2. Mechanical prosthetic valves (high risk), 2.5 - 3.5 Presence of Lupus Anticoagulant or Antiphospholipid Antibodies, Prevention of systemic embolism - Acute Myocardial Infarction (to prevent recurrent infarct). CBC W/AUTO [id number] 08:28:00* Test Item Value Reference Range Comments WHITE BLOOD CELL (test code=WBC) 10.78 x10 3/uL 4.5-11.0 RED BLOOD CELL (test code=RBC) 3.21 x10 6/uL 4.00-5.60 HEMOGLOBIN (test code=HGB) 9.7 g/dL 12.5-16.9 HEMATOCRIT (test code=HCT) 30.9 % 37.5-50.7 MEAN CELL VOLUME (test code=MCV) 96.3 fL 81.0-99.0 MEAN CELL HGB (test code=MCH) 30.2 pg 27.0-33.0 MEAN CELL HGB CONCETRATION (test code=MCHC) 31.4 g/dL 33.0-37.0 RED CELL DISTRIBUTION WIDTH CV (test code=RDW) 15.1 % 11.5-14.5 RED CELL DISTRIBUTION WIDTH SD (test code=RDW-SD) 53.1 fL 37.0-54.0 PLATELET COUNT (test code=PLT) 362 x10 3/uL 150-400 MEAN PLATELET VOLUME (test code=MPV) 10.4 fL 7.0-9.0 NEUTROPHIL % (test code=NT%) 41.8 % 56.0-77.0 IMMATURE GRANULOCYTE % (test code=IG%) 0.3 % 0.0-2.0 LYMPHOCYTE % (test code=LY%) 36.2 % 14.0-32.0 MONOCYTE % (test code=MO%) 13.4 % 4.8-9.0 EOSINOPHIL % (test code=EO%) 7.1 % 0.3-3.7 BASOPHIL % (test code=BA%) 1.2 % 0.0-2.0 NUCLEATED RBC % (test code=NRBC%) 0.0 % 0-0 NEUTROPHIL # (test code=NT#) 4.52 x10 3/uL 2.0-7.6 IMMATURE GRANULOCYTE # (test code=IG#) 0.03 x10 3/uL 0.00-0.03 LYMPHOCYTE # (test code=LY#) 3.90 x10 3/uL 1.0-3.8 MONOCYTE # (test code=MO#) 1.44 x10 3/uL 0.1-0.8 EOSINOPHIL # (test code=EO#) 0.76 x10 3/uL 0.0-0.2 BASOPHIL # (test code=BA#) 0.13 x10 3/uL 0.0-0.2 NUCLEATED RBC # (test code=NRBC#) 0.00 x10 3/uL 0.0-0.1 MANUAL DIFF REQUIRED (test code=MDIFF) NO BASIC METABOLIC [id number] 08:11:00* Test Item Value Reference Range Comments SODIUM (test code=NA) 138 mEq/L 134-147 POTASSIUM (test code=K) 4.6 mEq/L 3.4-5.0 CHLORIDE (test code=CL) 108 mEq/L 100-108 CARBON DIOXIDE (test code=CO2) 25 mEq/L 21-33 ANION GAP (test code=GAP) 10 0-20 GLUCOSE (test code=GLU) 82 mg/dL 70-110 BLOOD UREA NITROGEN (test code=BUN) 27 mg/dL 7-18 GLOMERULAR FILTRATION RATE (test code=GFR) 32.9 70-80 Units of measure=ml/min/1.73 m2 CREATININE (test code=CREAT) 2.0 mg/dL 0.6-1.3 CALCIUM (test code=CA) 9.5 mg/dL 8.0-10.5 [id number] 08:11:00* Test Item Value Reference Range Comments MAGNESIUM (test code=MAG) 2.40 mg/dL 1.8-2.4 CBC W/AUTO [id number] 08:37:00* Test Item Value Reference Range Comments WHITE BLOOD CELL (test code=WBC) 10.80 x10 3/uL 4.5-11.0 RED BLOOD CELL (test code=RBC) 3.19 x10 6/uL 4.00-5.60 HEMOGLOBIN (test code=HGB) 9.6 g/dL 12.5-16.9 HEMATOCRIT (test code=HCT) 30.7 % 37.5-50.7 MEAN CELL VOLUME (test code=MCV) 96.2 fL 81.0-99.0 MEAN CELL HGB (test code=MCH) 30.1 pg 27.0-33.0 MEAN CELL HGB CONCETRATION (test code=MCHC) 31.3 g/dL 33.0-37.0 RED CELL DISTRIBUTION WIDTH CV (test code=RDW) 15.1 % 11.5-14.5 RED CELL DISTRIBUTION WIDTH SD (test code=RDW-SD) 52.9 fL 37.0-54.0 PLATELET COUNT (test code=PLT) 348 x10 3/uL 150-400 MEAN PLATELET VOLUME (test code=MPV) 9.9 fL 7.0-9.0 NEUTROPHIL % (test code=NT%) 46.3 % 56.0-77.0 IMMATURE GRANULOCYTE % (test code=IG%) 0.4 % 0.0-2.0 LYMPHOCYTE % (test code=LY%) 31.6 % 14.0-32.0 MONOCYTE % (test code=MO%) 14.1 % 4.8-9.0 EOSINOPHIL % (test code=EO%) 6.5 % 0.3-3.7 BASOPHIL % (test code=BA%) 1.1 % 0.0-2.0 NUCLEATED RBC % (test code=NRBC%) 0.3 % 0-0 NEUTROPHIL # (test code=NT#) 5.01 x10 3/uL 2.0-7.6 IMMATURE GRANULOCYTE # (test code=IG#) 0.04 x10 3/uL 0.00-0.03 LYMPHOCYTE # (test code=LY#) 3.41 x10 3/uL 1.0-3.8 MONOCYTE # (test code=MO#) 1.52 x10 3/uL 0.1-0.8 EOSINOPHIL # (test code=EO#) 0.70 x10 3/uL 0.0-0.2 BASOPHIL # (test code=BA#) 0.12 x10 3/uL 0.0-0.2 NUCLEATED RBC # (test code=NRBC#) 0.03 x10 3/uL 0.0-0.1 MANUAL DIFF REQUIRED (test code=MDIFF) NO BASIC METABOLIC [id number] 08:05:00* Test Item Value Reference Range Comments SODIUM (test code=NA) 138 mEq/L 134-147 POTASSIUM (test code=K) 4.8 mEq/L 3.4-5.0 CHLORIDE (test code=CL) 107 mEq/L 100-108 CARBON DIOXIDE (test code=CO2) 25 mEq/L 21-33 ANION GAP (test code=GAP) 11 0-20 GLUCOSE (test code=GLU) 85 mg/dL 70-110 BLOOD UREA NITROGEN (test code=BUN) 28 mg/dL 7-18 GLOMERULAR FILTRATION RATE (test code=GFR) 31.1 70-80 Units of measure=ml/min/1.73 m2 CREATININE (test code=CREAT) 2.1 mg/dL 0.6-1.3 CALCIUM (test code=CA) 9.5 mg/dL 8.0-10.5 [id number] 08:05:00* Test Item Value Reference Range Comments MAGNESIUM (test code=MAG) 2.60 mg/dL 1.8-2.4 BASIC METABOLIC [id number] 08:06:00* Test Item Value Reference Range Comments SODIUM (test code=NA) 139 mEq/L 134-147 POTASSIUM (test code=K) 4.5 mEq/L 3.4-5.0 CHLORIDE (test code=CL) 107 mEq/L 100-108 CARBON DIOXIDE (test code=CO2) 25 mEq/L 21-33 ANION GAP (test code=GAP) 12 0-20 GLUCOSE (test code=GLU) 95 mg/dL 70-110 BLOOD UREA NITROGEN (test code=BUN) 33 mg/dL 7-18 GLOMERULAR FILTRATION RATE (test code=GFR) 28.0 70-80 Units of measure=ml/min/1.73 m2 CREATININE (test code=CREAT) 2.3 mg/dL 0.6-1.3 CALCIUM (test code=CA) 9.1 mg/dL 8.0-10.5 [id number] 08:06:00* Test Item Value Reference Range Comments PHOSPHOROUS (test code=PHOS) 3.9 mg/dL 2.5-4.9 [id number] 08:06:00* Test Item Value Reference Range Comments MAGNESIUM (test code=MAG) 2.90 mg/dL 1.8-2.4 CBC W/AUTO [id number] 07:48:00* Test Item Value Reference Range Comments WHITE BLOOD CELL (test code=WBC) 10.96 x10 3/uL 4.5-11.0 RED BLOOD CELL (test code=RBC) 3.36 x10 6/uL 4.00-5.60 HEMOGLOBIN (test code=HGB) 10.1 g/dL 12.5-16.9 HEMATOCRIT (test code=HCT) 32.0 % 37.5-50.7 MEAN CELL VOLUME (test code=MCV) 95.2 fL 81.0-99.0 MEAN CELL HGB (test code=MCH) 30.1 pg 27.0-33.0 MEAN CELL HGB CONCETRATION (test code=MCHC) 31.6 g/dL 33.0-37.0 RED CELL DISTRIBUTION WIDTH CV (test code=RDW) 15.0 % 11.5-14.5 RED CELL DISTRIBUTION WIDTH SD (test code=RDW-SD) 52.0 fL 37.0-54.0 PLATELET COUNT (test code=PLT) 355 x10 3/uL 150-400 MEAN PLATELET VOLUME (test code=MPV) 9.9 fL 7.0-9.0 NEUTROPHIL % (test code=NT%) 49.4 % 56.0-77.0 IMMATURE GRANULOCYTE % (test code=IG%) 0.5 % 0.0-2.0 LYMPHOCYTE % (test code=LY%) 31.1 % 14.0-32.0 MONOCYTE % (test code=MO%) 13.2 % 4.8-9.0 EOSINOPHIL % (test code=EO%) 5.1 % 0.3-3.7 BASOPHIL % (test code=BA%) 0.7 % 0.0-2.0 NUCLEATED RBC % (test code=NRBC%) 0.2 % 0-0 NEUTROPHIL # (test code=NT#) 5.41 x10 3/uL 2.0-7.6 IMMATURE GRANULOCYTE # (test code=IG#) 0.05 x10 3/uL 0.00-0.03 LYMPHOCYTE # (test code=LY#) 3.41 x10 3/uL 1.0-3.8 MONOCYTE # (test code=MO#) 1.45 x10 3/uL 0.1-0.8 EOSINOPHIL # (test code=EO#) 0.56 x10 3/uL 0.0-0.2 BASOPHIL # (test code=BA#) 0.08 x10 3/uL 0.0-0.2 NUCLEATED RBC # (test code=NRBC#) 0.02 x10 3/uL 0.0-0.1 MANUAL DIFF REQUIRED (test code=MDIFF) NO URINALYSIS [id number] 17:35:00* Test Item Value Reference Range Comments UA COLOR (test code=COLU) YELLOW YEL/STRAW UA APPEARANCE (test code=APPU) SL CLOUDY CLEAR UA GLUCOSE DIPSTICK (test code=DGLUU) NEGATIVE NEGATIVE UA BILIRUBIN DIPSTICK (test code=BILU) NEGATIVE NEGATIVE UA KETONE DIPSTICK (test code=KETU) NEGATIVE NEGATIVE UA SPECIFIC GRAVITY (test code=SGU) 1.014 1.005-1.030 UA BLOOD DIPSTICK (test code=NOE) 3+ NEGATIVE UA PH DIPSTICK (test code=TIERRA) 6.0 5.0-7.0 UA PROTEIN DIPSTICK (test code=PROU) 2+ NEGATIVE UA UROBILINIOGEN DIPSTICK (test code=URO) 0.2 mg/dL 0.2-1.0 UA NITRITE DIPSTICK (test code=PARAS) NEGATIVE NEGATIVE UA LEUKOCYTE ESTERASE DIPSTICK (test code=LEUU) 2+ NEGATIVE UA WBC (test code=WBCU) 21-50 WBC/HPF 0-3 UA RBC (test code=RBCU) >50 RBC/HPF 0-3 UA BACTERIA (test code=BACU) TRACE /HPF NONE SEEN UA SQUAMOUS CELLS (test code=SQU) NONE SEEN /HPF NONE SEEN UA TRANSITIONAL CELLS (test code=TRANU) TRACE /HPF NONE SEEN UA MUCUS (test code=MUCU) TRACE /LPF NONE SEEN UA YEAST (BUDDING) (test code=YEASTUBD) 1+ /HPF NONE UA CULT [id number] 17:35:00* Test Item Value Reference Range Comments UA CULTURE NEEDED? (test code=UACULT) YES,WBC>10 & EPI<=25 Criteria Culture Chk Criteria met, Urine Culture in-process. CBC W/AUTO [id number] 09:45:00* Test Item Value Reference Range Comments WHITE BLOOD CELL (test code=WBC) 9.08 x10 3/uL 4.5-11.0 RED BLOOD CELL (test code=RBC) 3.41 x10 6/uL 4.00-5.60 HEMOGLOBIN (test code=HGB) 10.3 g/dL 12.5-16.9 HEMATOCRIT (test code=HCT) 31.9 % 37.5-50.7 MEAN CELL VOLUME (test code=MCV) 93.5 fL 81.0-99.0 MEAN CELL HGB (test code=MCH) 30.2 pg 27.0-33.0 MEAN CELL HGB CONCETRATION (test code=MCHC) 32.3 g/dL 33.0-37.0 RED CELL DISTRIBUTION WIDTH CV (test code=RDW) 14.7 % 11.5-14.5 RED CELL DISTRIBUTION WIDTH SD (test code=RDW-SD) 50.6 fL 37.0-54.0 PLATELET COUNT (test code=PLT) 361 x10 3/uL 150-400 MEAN PLATELET VOLUME (test code=MPV) 9.8 fL 7.0-9.0 NEUTROPHIL % (test code=NT%) 43.1 % 56.0-77.0 IMMATURE GRANULOCYTE % (test code=IG%) 0.3 % 0.0-2.0 LYMPHOCYTE % (test code=LY%) 34.9 % 14.0-32.0 MONOCYTE % (test code=MO%) 14.1 % 4.8-9.0 EOSINOPHIL % (test code=EO%) 6.6 % 0.3-3.7 BASOPHIL % (test code=BA%) 1.0 % 0.0-2.0 NUCLEATED RBC % (test code=NRBC%) 0.0 % 0-0 NEUTROPHIL # (test code=NT#) 3.91 x10 3/uL 2.0-7.6 IMMATURE GRANULOCYTE # (test code=IG#) 0.03 x10 3/uL 0.00-0.03 LYMPHOCYTE # (test code=LY#) 3.17 x10 3/uL 1.0-3.8 MONOCYTE # (test code=MO#) 1.28 x10 3/uL 0.1-0.8 EOSINOPHIL # (test code=EO#) 0.60 x10 3/uL 0.0-0.2 BASOPHIL # (test code=BA#) 0.09 x10 3/uL 0.0-0.2 NUCLEATED RBC # (test code=NRBC#) 0.00 x10 3/uL 0.0-0.1 MANUAL DIFF REQUIRED (test code=MDIFF) NO COMPREHENSIVE METABOLIC [id number] 08:13:00* Test Item Value Reference Range Comments SODIUM (test code=NA) 135 mEq/L 134-147 POTASSIUM (test code=K) 4.5 mEq/L 3.4-5.0 CHLORIDE (test code=CL) 105 mEq/L 100-108 CARBON DIOXIDE (test code=CO2) 26 mEq/L 21-33 ANION GAP (test code=GAP) 9 0-20 GLUCOSE (test code=GLU) 79 mg/dL 70-110 BLOOD UREA NITROGEN (test code=BUN) 33 mg/dL 7-18 GLOMERULAR FILTRATION RATE (test code=GFR) 28.0 70-80 Units of measure=ml/min/1.73 m2 CREATININE (test code=CREAT) 2.3 mg/dL 0.6-1.3 TOTAL PROTEIN (test code=PROT) 6.7 g/dL 6.4-8.2 ALBUMIN (test code=ALB) 2.30 g/dL 3.4-5.0 CALCIUM (test code=CA) 9.0 mg/dL 8.0-10.5 BILIRUBIN TOTAL (test code=BILT) 0.20 mg/dL 0.0-1.0 SGOT/AST (test code=AST) 17 IUnit/L 15-37 SGPT/ALT (test code=ALT) 10 IUnit/L 15-65 ALKALINE PHOSPHATASE TOTAL (test code=ALKP) 75 IUnit/L 20-125 [id number] 08:13:00* Test Item Value Reference Range Comments PHOSPHOROUS (test code=PHOS) 2.6 mg/dL 2.5-4.9 [id number] 08:13:00* Test Item Value Reference Range Comments MAGNESIUM (test code=MAG) 2.90 mg/dL 1.8-2.4 PROCALCITONIN (PCT)2018-06-29 20:00:00* Test Item Value Reference Range Comments PROCALCITONIN (PCT) (test code=PROCAL) 0.23 ng/mL 0.00-0.05 PROCALCITONIN (PCT) NORMAL RANGE (ADULT): <0.05 NG/ML. * a concentration <0.5 ng/mL represents a low risk of severe sepsis and/or septic shock.* a concentration >2 ng/mL represents a high risk of severe sepsis and/or septic shock.Nevertheless, concentrations <0.5 ng/mL do not exclude aninfection, on account of localized infections (withoutsystemic signs) which can be associated with such lowconcentrations, or a systemic infection in its initialstages (< 6 hours). Furthermore, increased procalcitonincan occur without infection. PCT concentrations between 0.5and 2.0 ng/mL should be interpreted taking into account thepatient's history. It is recommended to retest PCT within6-24 hours if any concentrations <2 ng/mL are obtained. PROCALCITONIN (PCT)2018-06-29 20:00:00* Test Item Value Reference Range Comments PROCALCITONIN (PCT) (test code=PROCAL) 0.16 ng/mL 0.00-0.05 PROCALCITONIN (PCT) NORMAL RANGE (ADULT): <0.05 NG/ML. * a concentration <0.5 ng/mL represents a low risk of severe sepsis and/or septic shock.* a concentration >2 ng/mL represents a high risk of severe sepsis and/or septic shock.Nevertheless, concentrations <0.5 ng/mL do not exclude aninfection, on account of localized infections (withoutsystemic signs) which can be associated with such lowconcentrations, or a systemic infection in its initialstages (< 6 hours). Furthermore, increased procalcitonincan occur without infection. PCT concentrations between 0.5and 2.0 ng/mL should be interpreted taking into account thepatient's history. It is recommended to retest PCT within6-24 hours if any concentrations <2 ng/mL are obtained. PROCALCITONIN (PCT)2018-06-29 19:59:00* Test Item Value Reference Range Comments PROCALCITONIN (PCT) (test code=PROCAL) 0.08 ng/mL 0.00-0.05 PROCALCITONIN (PCT) NORMAL RANGE (ADULT): <0.05 NG/ML. * a concentration <0.5 ng/mL represents a low risk of severe sepsis and/or septic shock.* a concentration >2 ng/mL represents a high risk of severe sepsis and/or septic shock.Nevertheless, concentrations <0.5 ng/mL do not exclude aninfection, on account of localized infections (withoutsystemic signs) which can be associated with such lowconcentrations, or a systemic infection in its initialstages (< 6 hours). Furthermore, increased procalcitonincan occur without infection. PCT concentrations between 0.5and 2.0 ng/mL should be interpreted taking into account thepatient's history. It is recommended to retest PCT within6-24 hours if any concentrations <2 ng/mL are obtained. PROCALCITONIN (PCT)2018-06-29 17:08:00* Test Item Value Reference Range Comments PROCALCITONIN (PCT) (test code=PROCAL) 0.23 ng/mL 0.00-0.50 PROCALCITONIN (PCT)2018-06-29 16:55:00* Test Item Value Reference Range Comments PROCALCITONIN (PCT) (test code=PROCAL) 0.23 ng/mL 0.00-0.05 PROCALCITONIN (PCT) NORMAL RANGE (ADULT): <0.05 NG/ML. * a concentration <0.5 ng/mL represents a low risk of severe sepsis and/or septic shock.* a concentration >2 ng/mL represents a high risk of severe sepsis and/or septic shock.Nevertheless, concentrations <0.5 ng/mL do not exclude aninfection, on account of localized infections (withoutsystemic signs) which can be associated with such lowconcentrations, or a systemic infection in its initialstages (< 6 hours). Furthermore, increased procalcitonincan occur without infection. PCT concentrations between 0.5and 2.0 ng/mL should be interpreted taking into account thepatient's history. It is recommended to retest PCT within6-24 hours if any concentrations <2 ng/mL are obtained. BASIC METABOLIC [id number] 06:57:00* Test Item Value Reference Range Comments SODIUM (test code=NA) 134 mmol/l 134.0-147.0 POTASSIUM (test code=K) 4.2 mmol/L 3.6-5.2 CHLORIDE (test code=CL) 100 mmol/l 98.0-107.0 CARBON DIOXIDE (test code=CO2) 24.5 mmol/l 21.0-33.0 ANION GAP (test code=GAP) 13.7 0-20 GLUCOSE (test code=GLU) 107 mg/dl 70.0-110.0 BLOOD UREA NITROGEN (test code=BUN) 22 mg/dl 7.0-18.0 CREATININE (test code=CREAT) 2.20 mg/dL 0.60-1.30 GFR NON BLACK (test code=GFRNONBLACK) 31 mL/min 70-80 GFR BLACK (test code=GFRBLACK) 38 mL/min 85-97 CALCIUM (test code=CA) 10.3 mg/dl 8.0-10.5 [id number] 06:57:00* Test Item Value Reference Range Comments MAGNESIUM (test code=MAG) 2.1 mg/dl 1.8-2.4 CALCIUM [id number] 19:38:00* Test Item Value Reference Range Comments CALCIUM IONIZED (test code=ASAF) 1.36 MMOL/L 1.12-1.32 PROCALCITONIN (PCT)2018-06-28 18:05:00* Test Item Value Reference Range Comments PROCALCITONIN (PCT) (test code=PROCAL) 0.16 ng/mL 0.00-0.50 PROCALCITONIN (PCT)2018-06-28 17:51:00* Test Item Value Reference Range Comments PROCALCITONIN (PCT) (test code=PROCAL) 0.16 ng/mL 0.00-0.05 PROCALCITONIN (PCT) NORMAL RANGE (ADULT): <0.05 NG/ML. * a concentration <0.5 ng/mL represents a low risk of severe sepsis and/or septic shock.* a concentration >2 ng/mL represents a high risk of severe sepsis and/or septic shock.Nevertheless, concentrations <0.5 ng/mL do not exclude aninfection, on account of localized infections (withoutsystemic signs) which can be associated with such lowconcentrations, or a systemic infection in its initialstages (< 6 hours). Furthermore, increased procalcitonincan occur without infection. PCT concentrations between 0.5and 2.0 ng/mL should be interpreted taking into account thepatient's history. It is recommended to retest PCT within6-24 hours if any concentrations <2 ng/mL are obtained. PROCALCITONIN (PCT)2018-06-28 17:44:00* Test Item Value Reference Range Comments PROCALCITONIN (PCT) (test code=PROCAL) 0.08 ng/mL 0.00-0.50 COMPREHENSIVE METABOLIC [id number] 07:04:00* Test Item Value Reference Range Comments SODIUM (test code=NA) 132 mmol/l 134.0-147.0 POTASSIUM (test code=K) 3.9 mmol/L 3.6-5.2 CHLORIDE (test code=CL) 100 mmol/l 98.0-107.0 CARBON DIOXIDE (test code=CO2) 24.7 mmol/l 21.0-33.0 ANION GAP (test code=GAP) 11.2 0-20 GLUCOSE (test code=GLU) 97 mg/dl 70.0-110.0 BLOOD UREA NITROGEN (test code=BUN) 15 mg/dl 7.0-18.0 CREATININE (test code=CREAT) 1.91 mg/dL 0.60-1.30 GFR NON BLACK (test code=GFRNONBLACK) 37 mL/min 70-80 GFR BLACK (test code=GFRBLACK) 44 mL/min 85-97 TOTAL PROTEIN (test code=PROT) 7.2 gm/dL 6.4-8.2 ALBUMIN (test code=ALB) 2.4 gm/dl 3.2-4.7 CALCIUM (test code=CA) 10.1 mg/dl 8.0-10.5 BILIRUBIN TOTAL (test code=BILT) 0.6 mg/dl 0.0-1.0 SGOT/AST (test code=AST) 15 Units/L 15.0-37.0 SGPT/ALT (test code=ALT) 13 Units/L 12.0-78.0 ALKALINE PHOSPHATASE TOTAL (test code=ALKP) 72 Units/L 50.0-136.0 CBC W/AUTO [id number] 06:31:00* Test Item Value Reference Range Comments WHITE BLOOD CELL (test code=WBC) 11.3 K/mm3 4.5-11.0 RED BLOOD CELL (test code=RBC) 3.54 M/mm3 4.40-5.90 HEMOGLOBIN (test code=HGB) 10.5 gm/dL 13.0-17.0 HEMATOCRIT (test code=HCT) 31.8 % 36.0-48.0 MEAN CELL VOLUME (test code=MCV) 89.8 UM3 80.0-94.0 MEAN CELL HGB (test code=MCH) 29.7 UUG 25.5-32.5 MEAN CELL HGB CONCETRATION (test code=MCHC) 33.0 gm/dL 29.0-35.5 RED CELL DISTRIBUTION WIDTH (test code=RDW) 14.7 % 11.5-15.0 PLATELET COUNT (test code=PLT) 390 K/mm3 150-400 MEAN PLATELET VOLUME (test code=MPV) 9.9 fl 7.4-10.4 NEUTROPHIL % (test code=NT%) 71.3 % 49.0-76.0 LYMPHOCYTE % (test code=LY%) 14.7 % 23.0-38.0 MONOCYTE % (test code=MO%) 9.3 % 1.0-10.0 EOSINOPHIL % (test code=EO%) 3.7 % 1.0-5.0 BASOPHIL % (test code=BA%) 0.7 % 0.0-1.0 NEUTROPHIL # (test code=NT#) 8.0 K/mm3 2.4-6.3 LYMPHOCYTE # (test code=LY#) 1.7 K/mm3 1.2-4.0 MONOCYTE # (test code=MO#) 1.1 K/mm3 0.0-0.6 EOSINOPHIL # (test code=EO#) 0.4 K/MM3 0.0-0.7 BASOPHIL # (test code=BA#) 0.1 K/mm3 0.0-0.2 PROCALCITONIN (PCT)2018-06-27 21:13:00* Test Item Value Reference Range Comments PROCALCITONIN (PCT) (test code=PROCAL) 0.08 ng/mL 0.00-0.05 PROCALCITONIN (PCT) NORMAL RANGE (ADULT): <0.05 NG/ML. * a concentration <0.5 ng/mL represents a low risk of severe sepsis and/or septic shock.* a concentration >2 ng/mL represents a high risk of severe sepsis and/or septic shock.Nevertheless, concentrations <0.5 ng/mL do not exclude aninfection, on account of localized infections (withoutsystemic signs) which can be associated with such lowconcentrations, or a systemic infection in its initialstages (< 6 hours). Furthermore, increased procalcitonincan occur without infection. PCT concentrations between 0.5and 2.0 ng/mL should be interpreted taking into account thepatient's history. It is recommended to retest PCT within6-24 hours if any concentrations <2 ng/mL are obtained. UR SODIUM [id number] 20:33:00* Test Item Value Reference Range Comments UR SODIUM RANDOM (test code=ITZ) mmol/L 40-220 UR PROTEIN [id number] 20:33:00* Test Item Value Reference Range Comments UR PROTEIN RESULT (test code=PROTU) MG/DL 0-15.0 UR CREATININE [id number] 20:33:00* Test Item Value Reference Range Comments UR CREATININE RESULT (test code=CREATU) MG/DL 30-125 UR OSMOLALITY [id number] 20:33:00* Test Item Value Reference Range Comments UR OSMOLALITY RANDOM (test code=OSMOU) 320 MOS/KG 300-1000 UR SODIUM [id number] 20:33:00* Test Item Value Reference Range Comments UR SODIUM RANDOM (test code=ITZ) 107 mmol/L 40-220 UR PROTEIN [id number] 20:33:00* Test Item Value Reference Range Comments UR PROTEIN RESULT (test code=PROTU) 122.2 MG/DL 0-15.0 UR CREATININE [id number] 20:33:00* Test Item Value Reference Range Comments UR CREATININE RESULT (test code=CREATU) 28.92 MG/DL 30-125 UR OSMOLALITY [id number] 20:33:00* Test Item Value Reference Range Comments UR OSMOLALITY RANDOM (test code=OSMOU) 320 MOS/KG 300-1000 CALCIUM [id number] 14:53:00* Test Item Value Reference Range Comments CALCIUM IONIZED (test code=ASAF) 1.36 MMOL/L 1.12-1.32 - US RETRO [id number] 13:27:00 FAX: Harmony Hong [phone] [place]: St: ADM FAX: Leonel Montenegro [facility] [phone] Name: TAISHA VILLALTA [facility] : 1945 Age/S: 73/M [address] [facility] Unit #: [id number] Loc: [address] [place], [place] Phys: [place] [address] Acct: [id number] Dis Date: Status: ADM IN PHONE #: [phone] Exam Date: 06/27/2018 1236 FAX #: [phone] Reason: acute renal failure EXAMS: CPT CODE: [id number] [facility] [id number] REASON FOR EXAM: Acute renal failure. Renal sonogram. COMPARISON: April 17, 2018 from an outside location. B- mode/Fitzpatrick scale imaging with color Doppler perfusion imaging spectral analysis was performed. The right kidney is surgically absent. No suspicious findings in the renal bed. The left kidney measures 13.5 x 5.5 x 5.9 cm. 2.2 cm simple cyst in the upper left kidne y, stable. Perfusion pattern intact. No evidence of obstruction, mass or shadowing stones. The bladder is completely empty during the stud y. No ascites found. IMPRESSION: Right nephrectomy. Normal appearance to the left kidney with simple cyst. No evidence of obstruction. Completely empty bladder. Location: U19 at 1327 Reported and signed by: Gaudencio Terrazas M.D. CC: Harmony Funk MD; Leonel Caal MD Technolog ist: JORDI OLMSTEAD Trnscrd Date/Time/By : 06/27/2018 (1490) : By: [facility] Sig danial Report FAX: Harmony Hong [place]: St: ADM FAX: Leonel Montenegro [facility] [phone] Name: TAISHA VILLALTA [facility] D OB: 1945 Age/S: 73/M [address] Unit #: [id number] Loc: [address] [place], [place]: [place] [address] Acct: [id number] D is Date: Status: ADM IN PHONE #: Exam Date: 06/27/2018 1236 FAX #: [phone] Reason: acute renal failure EXAMS: CPT CODE: [id number] [place] [id number] <Continued> Orig Print D/T: S: 06/27/2018 (9241) PAGE 2 Signed Report LACTIC [id number] 11:43:00* Test Item Value Reference Range Comments LACTIC ACID (test code=LACT) 1.7 MMOL/L 0.4-2.0 - XR HIP BI [id number] 09:13:00 FAX: Harmony Hong [phone] [place]: [facility]: [facility] FAX: Susan Caal Omar [facility] [phone] Name: TAISHA VILLALTA [facility] : 1945 Age/S: 73/M [address] Unit #: [id number] Loc: [address] [place], [place]: [place] [address] Acct: [id number] Dis Date: Status: ADM IN PHONE #: [phone] Exam Date: 06/27/2018824 FAX #: [phone] Reason: HIP PAIN EXAMS: CPT CODE: [id number] XR HIP BI W/PELVIS 33651 REASON FOR EXAM: Hip pain. Bilateral hips, 3 views with pelvis. COMPARISON: May 18, 2018 The hips are well aligned. The right hip shows an avulsion of the greater trochan ter, transverse in orientation. Femoral neck bilaterally intact. Acetabu lum normal. Neural stimulator entering the sacrum with the device on the right. Pubic rami intact. IMPRESSION: Chron ic avulsion of the greater trochanter at the right hip, similar in align ment to the plain films and CT study from May 18, 2018 exam. No new fractures. Location: [facility] at 0913 R eported and signed by: Gaudencio Terrazas M.D. CC: Harmony brewster MD; Leonel Caal MD Technologist: REA MULLER [facility] Date/Time/By: 06/27/2018 (912) : By: loi [facility] PAGE 1 Signed Report FAX: Harmony Hong [phone] [place]: St: [facility] FAX: Leonel Montenegro [phone] Name: GUSTAVO VILLALTA [facility] : 1945 Age/S: 73/M [address] [facility] Unit #: [id number] Loc: [address] [place], [place] Phys: Harmony Funk MD 77 591 Acct: [id number] Dis Date: Statu s: ADM IN PHONE #: [phone] Exam Date: 06/27/2018 08 FAX #: [phone] Reason: HIP PAIN EXAMS: CPT CODE: [id number] XR HIP BI W/PELVIS 72335 <Continued> Orig Print D/T: S: 06/27/2018 (7827) PAGE 2 Signed Report [id number] 01:51:00* Test Item Value Reference Range Comments TROPONIN-I (test code=TROPI) <0.02 NG/ML 0.00-0.06 REFERENCE RANGE TROPONIN I HEALTHY INDIVIDUALS: <0.06 ng/mL R/O ISCHEMIA: 0.07 - 0.60 ng/mL CUT-OFF RANGE FOR AMI: 0.60 - 1.5 ng/mL COMPREHENSIVE METABOLIC [id number] 01:50:00* Test Item Value Reference Range Comments SODIUM (test code=NA) 135 mmol/l 134.0-147.0 POTASSIUM (test code=K) 3.9 mmol/L 3.6-5.2 CHLORIDE (test code=CL) 102 mmol/l 98.0-107.0 CARBON DIOXIDE (test code=CO2) 23.8 mmol/l 21.0-33.0 ANION GAP (test code=GAP) 13.1 0-20 GLUCOSE (test code=GLU) 128 mg/dl 70.0-110.0 BLOOD UREA NITROGEN (test code=BUN) 20 mg/dl 7.0-18.0 CREATININE (test code=CREAT) 2.27 mg/dL 0.60-1.30 GFR NON BLACK (test code=GFRNONBLACK) 30 mL/min 70-80 GFR BLACK (test code=GFRBLACK) 37 mL/min 85-97 TOTAL PROTEIN (test code=PROT) 6.8 gm/dL 6.4-8.2 ALBUMIN (test code=ALB) 2.4 gm/dl 3.2-4.7 CALCIUM (test code=CA) 10.3 mg/dl 8.0-10.5 BILIRUBIN TOTAL (test code=BILT) 0.4 mg/dl 0.0-1.0 SGOT/AST (test code=AST) 13 Units/L 15.0-37.0 SGPT/ALT (test code=ALT) 9 Units/L 12.0-78.0 ALKALINE PHOSPHATASE TOTAL (test code=ALKP) 71 Units/L 50.0-136.0 Comments to Bridal Sales Consultant: Patient is currently in the ED waiting on a bedLIPID PROFILE (CORONARY RISK)2018-06-27 01:50:00* Test Item Value Reference Range Comments TRIGLYCERIDES (test code=TRIG) 164 mg/dl 40.0-150.0 CHOLESTEROL (test code=CHOL) 153 mg/dl 0.0-200.0 CHOLESTEROL/HDL RATIO (test code=CHOLHDL) 4.5 RATIO HDL CHOLESTEROL (test code=HDL) 34 mg/dl 30.0-60.0 LIPOPROTEIN LDL (test code=LDL) 100 mg/dl 70-130 Comments to Bridal Sales Consultant: Patient is currently in the ED waiting on a bedLACTIC [id number] 01:45:00* Test Item Value Reference Range Comments LACTIC ACID (test code=LACT) 1.4 MMOL/L 0.4-2.0 CBC W/AUTO [id number] 01:37:00* Test Item Value Reference Range Comments WHITE BLOOD CELL (test code=WBC) 13.0 K/mm3 4.5-11.0 RED BLOOD CELL (test code=RBC) 3.35 M/mm3 4.40-5.90 HEMOGLOBIN (test code=HGB) 10.0 gm/dL 13.0-17.0 HEMATOCRIT (test code=HCT) 30.3 % 36.0-48.0 MEAN CELL VOLUME (test code=MCV) 90.4 UM3 80.0-94.0 MEAN CELL HGB (test code=MCH) 29.9 UUG 25.5-32.5 MEAN CELL HGB CONCETRATION (test code=MCHC) 33.0 gm/dL 29.0-35.5 RED CELL DISTRIBUTION WIDTH (test code=RDW) 15.0 % 11.5-15.0 PLATELET COUNT (test code=PLT) 404 K/mm3 150-400 MEAN PLATELET VOLUME (test code=MPV) 9.6 fl 7.4-10.4 NEUTROPHIL % (test code=NT%) 63.6 % 49.0-76.0 LYMPHOCYTE % (test code=LY%) 24.8 % 23.0-38.0 MONOCYTE % (test code=MO%) 10.1 % 1.0-10.0 EOSINOPHIL % (test code=EO%) 0.8 % 1.0-5.0 BASOPHIL % (test code=BA%) 0.5 % 0.0-1.0 NEUTROPHIL # (test code=NT#) 8.3 K/mm3 2.4-6.3 LYMPHOCYTE # (test code=LY#) 3.2 K/mm3 1.2-4.0 MONOCYTE # (test code=MO#) 1.3 K/mm3 0.0-0.6 EOSINOPHIL # (test code=EO#) 0.1 K/MM3 0.0-0.7 BASOPHIL # (test code=BA#) 0.1 K/mm3 0.0-0.2 Comments to Bridal Sales Consultant: Patient is currently in the ED waiting on a bedDRUGS OF ABUSE SCREEN [id number] 19:24:00* Test Item Value Reference Range Comments URN COCAINE (test code=COCAURN) NEGATIVE NEGATIVE Cocaine cut-off concentration: 300 ng/mL URN CANNABINOIDS (test code=CANNABURN) NEGATIVE NEGATIVE Cannabinoids cut-off concentration: 50 ng/mL URN AMPHETAMINE (test code=AMPHETURN) NEGATIVE NEGATIVE Amphetamine cut-off concentration: 1000 ng/mL URN BARBITURATE (test code=BARBITURN) NEGATIVE NEGATIVE Barbiturate cut-off concentration: 200 ng/mL URN BENZODIAZEPINE (test code=BENZOURN) NEGATIVE NEGATIVE Benzodiazepine cut- off concentration: 200 ng/mL URN OPIATES (test code=OPIATURN) NEGATIVE NEGATIVE Opiates cut-off concentration: 200 ng/mL URN PHENCYCLIDINE (PCP) (test code=PHENCURN) NEGATIVE NEGATIVE Phencyclidine(PCP) cut-off concentration: 25 ng/ml URN METHADONE (test code=METHAURN) NEGATIVE NEGATIVE Methadone cut-off concentration: 300 ng/mL Specimen comments: Clean CatchURINALYSIS [id number] 17:50:00* Test Item Value Reference Range Comments UA COLOR (test code=COLU) YELLOW UA APPEARANCE (test code=APPU) HAZY UA GLUCOSE DIPSTICK (test code=DGLUU) NORMAL mg/dl NORMAL UA BILIRUBIN DIPSTICK (test code=BILU) NEGATIVE mg/dL NEGATIVE UA KETONE DIPSTICK (test code=KETU) NEGATIVE mg/dl NEGATIVE UA SPECIFIC GRAVITY (test code=SGU) 1.020 1.000-1.030 UA BLOOD DIPSTICK (test code=NOE) 250 Zane/micL Zane/micL NEGATIVE UA PH DIPSTICK (test code=TIERRA) 6.0 5.0-9.0 UA PROTEIN DIPSTICK (test code=PROU) 100 mg/dl NEGATIVE UA UROBILINIOGEN DIPSTICK (test code=URO) NORMAL mg/dl NORMAL UA NITRITE DIPSTICK (test code=PARAS) NEGATIVE NEGATIVE UA LEUKOCYTE ESTERASE DIPSTICK (test code=LEUU) 500 Иван/micL Иван/micL NEGATIVE UA WBC (test code=WBCU) 100-200/HPF WBC/HPF NONE UA RBC (test code=RBCU) 10-25 RBC/HPF 0-3 UA EPITHELIAL CELLS (test code=EPIU) 0-3 EPI/HPF 0-3 UA BACTERIA (test code=BACU) MOD NONE UA HYALINE CAST (test code=HYALU) 0-2 /LPF <1/LPF UA YEAST (test code=YEASTU) MANY NEGATIVE Specimen comments: Clean CatchURINALYSIS [id number] 17:43:00* Test Item Value Reference Range Comments UA COLOR (test code=COLU) UA APPEARANCE (test code=APPU) UA GLUCOSE DIPSTICK (test code=DGLUU) NORMAL mg/dl NORMAL UA BILIRUBIN DIPSTICK (test code=BILU) NEGATIVE mg/dL NEGATIVE UA KETONE DIPSTICK (test code=KETU) NEGATIVE mg/dl NEGATIVE UA SPECIFIC GRAVITY (test code=SGU) 1.020 1.000-1.030 UA BLOOD DIPSTICK (test code=NOE) 250 Zane/micL Zane/micL NEGATIVE UA PH DIPSTICK (test code=TIERRA) 6.0 5.0-9.0 UA PROTEIN DIPSTICK (test code=PROU) 100 mg/dl NEGATIVE UA UROBILINIOGEN DIPSTICK (test code=URO) NORMAL mg/dl NORMAL UA NITRITE DIPSTICK (test code=PARAS) NEGATIVE NEGATIVE UA LEUKOCYTE ESTERASE DIPSTICK (test code=LEUU) 500 Иван/micL Иван/micL NEGATIVE UA WBC (test code=WBCU) WBC/HPF NONE UA RBC (test code=RBCU) RBC/HPF 0-3 UA EPITHELIAL CELLS (test code=EPIU) EPI/HPF 0-3 UA BACTERIA (test code=BACU) NONE Specimen comments: Clean CatchBASIC METABOLIC [id number] 17:35:00* Test Item Value Reference Range Comments SODIUM (test code=NA) 133 mmol/l 134.0-147.0 POTASSIUM (test code=K) 4.7 mmol/L 3.6-5.2 CHLORIDE (test code=CL) 98 mmol/l 98.0-107.0 CARBON DIOXIDE (test code=CO2) 26.7 mmol/l 21.0-33.0 ANION GAP (test code=GAP) 13.0 0-20 GLUCOSE (test code=GLU) 121 mg/dl 70.0-110.0 BLOOD UREA NITROGEN (test code=BUN) 22 mg/dl 7.0-18.0 CREATININE (test code=CREAT) 2.53 mg/dL 0.60-1.30 GFR NON BLACK (test code=GFRNONBLACK) 27 mL/min 70-80 GFR BLACK (test code=GFRBLACK) 32 mL/min 85-97 CALCIUM (test code=CA) 10.9 mg/dl 8.0-10.5 Specimen comments: Clean CatchSpecimen comments: .HEPATIC FUNCTION PANEL A 2018-06-26 17:35:00* Test Item Value Reference Range Comments TOTAL PROTEIN (test code=PROT) 8.1 GM/DL 6.0-8.1 ALBUMIN (test code=ALB) 2.8 gm/dL 3.2-4.7 BILIRUBIN TOTAL (test code=BILT) 0.4 mg/dl 0.0-1.0 SGOT/AST (test code=AST) 22 Units/L 15.0-37.0 SGPT/ALT (test code=ALT) 12 Units/L 12.0-78.0 ALKALINE PHOSPHATASE TOTAL (test code=ALKP) 82 Units/L 50.0-136.0 Specimen comments: Clean CatchSpecimen comments: .[id number] 17:35:00* Test Item Value Reference Range Comments LIPASE (test code=LIP) 167 Units/L 65.0-230.0 Specimen comments: Clean CatchSpecimen comments: .B-TYPE NATRIURETIC PEPTIDE 2018-06-26 17:35:00* Test Item Value Reference Range Comments B-TYPE NATRIURETIC PEPTIDE (test code=BNP) PG/ML 5-100 Specimen comments: Clean CatchSpecimen comments: .CARDIAC ENZYMES PROFILE 2018-06-26 17:35:00* Test Item Value Reference Range Comments CREATINE KINASE (CK) (test code=CK) 55 Units/L 39-308 CKMB (test code=CKMBT) 1.1 NG/ML 0.5-5.0 DISREGARD CKMB INDEX CALCULATION WHENEVER THE CKMBT ISREPORTED <0.5 CKMB INDEX (test code=CKMBI) 2.0 0.0-2.5 TROPONIN-I (test code=TROPI) <0.02 NG/ML 0.00-0.06 REFERENCE RANGE TROPONIN I HEALTHY INDIVIDUALS: <0.06 ng/mL R/O ISCHEMIA: 0.07 - 0.60 ng/mL CUT-OFF RANGE FOR AMI: 0.60 - 1.5 ng/mL Specimen comments: Clean CatchSpecimen comments: .BASIC METABOLIC PANEL 2018-06-26 17:35:00* Test Item Value Reference Range Comments SODIUM (test code=NA) 133 mmol/l 134.0-147.0 POTASSIUM (test code=K) 4.7 mmol/L 3.6-5.2 CHLORIDE (test code=CL) 98 mmol/l 98.0-107.0 CARBON DIOXIDE (test code=CO2) 26.7 mmol/l 21.0-33.0 ANION GAP (test code=GAP) 13.0 0-20 GLUCOSE (test code=GLU) 121 mg/dl 70.0-110.0 BLOOD UREA NITROGEN (test code=BUN) 22 mg/dl 7.0-18.0 CREATININE (test code=CREAT) 2.53 mg/dL 0.60-1.30 GFR NON BLACK (test code=GFRNONBLACK) 27 mL/min 70-80 GFR BLACK (test code=GFRBLACK) 32 mL/min 85-97 CALCIUM (test code=CA) 10.9 mg/dl 8.0-10.5 Specimen comments: Clean CatchSpecimen comments: .HEPATIC FUNCTION PANEL A 2018-06-26 17:35:00* Test Item Value Reference Range Comments TOTAL PROTEIN (test code=PROT) 8.1 GM/DL 6.0-8.1 ALBUMIN (test code=ALB) 2.8 gm/dL 3.2-4.7 BILIRUBIN TOTAL (test code=BILT) 0.4 mg/dl 0.0-1.0 SGOT/AST (test code=AST) 22 Units/L 15.0-37.0 SGPT/ALT (test code=ALT) 12 Units/L 12.0-78.0 ALKALINE PHOSPHATASE TOTAL (test code=ALKP) 82 Units/L 50.0-136.0 Specimen comments: Clean CatchSpecimen comments: .[id number] 17:35:00* Test Item Value Reference Range Comments LIPASE (test code=LIP) 167 Units/L 65.0-230.0 Specimen comments: Clean CatchSpecimen comments: .B-TYPE NATRIURETIC PEPTIDE 2018-06-26 17:35:00* Test Item Value Reference Range Comments B-TYPE NATRIURETIC PEPTIDE (test code=BNP) 33.5 PG/ML 5-100 Specimen comments: Clean CatchSpecimen comments: .CARDIAC ENZYMES PROFILE 2018-06-26 17:35:00* Test Item Value Reference Range Comments CREATINE KINASE (CK) (test code=CK) 55 Units/L 39-308 CKMB (test code=CKMBT) 1.1 NG/ML 0.5-5.0 DISREGARD CKMB INDEX CALCULATION WHENEVER THE CKMBT ISREPORTED <0.5 CKMB INDEX (test code=CKMBI) 2.0 0.0-2.5 TROPONIN-I (test code=TROPI) <0.02 NG/ML 0.00-0.06 REFERENCE RANGE TROPONIN I HEALTHY INDIVIDUALS: <0.06 ng/mL R/O ISCHEMIA: 0.07 - 0.60 ng/mL CUT-OFF RANGE FOR AMI: 0.60 - 1.5 ng/mL Specimen comments: Clean CatchSpecimen comments: .BASIC METABOLIC PANEL 2018-06-26 17:28:00* Test Item Value Reference Range Comments SODIUM (test code=NA) 133 mmol/l 134.0-147.0 POTASSIUM (test code=K) 4.7 mmol/L 3.6-5.2 CHLORIDE (test code=CL) 98 mmol/l 98.0-107.0 CARBON DIOXIDE (test code=CO2) 26.7 mmol/l 21.0-33.0 ANION GAP (test code=GAP) 13.0 0-20 GLUCOSE (test code=GLU) mg/dl 70.0-110.0 BLOOD UREA NITROGEN (test code=BUN) mg/dl 7.0-18.0 CREATININE (test code=CREAT) mg/dL 0.60-1.30 GFR NON BLACK (test code=GFRNONBLACK) mL/min 70-80 GFR BLACK (test code=GFRBLACK) mL/min 85-97 CALCIUM (test code=CA) mg/dl 8.0-10.5 Specimen comments: Clean CatchSpecimen comments: .HEPATIC FUNCTION PANEL A 2018-06-26 17:28:00* Test Item Value Reference Range Comments TOTAL PROTEIN (test code=PROT) gm/dL 6.4-8.2 ALBUMIN (test code=ALB) gm/dl 3.2-4.7 BILIRUBIN TOTAL (test code=BILT) mg/dl 0.0-1.0 BILIRUBIN DIRECT (test code=BILD) mg/dl 0.0-0.3 SGOT/AST (test code=AST) Units/L 15.0-37.0 SGPT/ALT (test code=ALT) Units/L 12.0-78.0 ALKALINE PHOSPHATASE TOTAL (test code=ALKP) Units/L 50.0-136.0 Specimen comments: Clean CatchSpecimen comments: .[id number] 17:28:00* Test Item Value Reference Range Comments LIPASE (test code=LIP) Units/L 65.0-230.0 Specimen comments: Clean CatchSpecimen comments: .B-TYPE NATRIURETIC PEPTIDE 2018-06-26 17:28:00* Test Item Value Reference Range Comments B-TYPE NATRIURETIC PEPTIDE (test code=BNP) PG/ML 5-100 Specimen comments: Clean CatchSpecimen comments: .CARDIAC ENZYMES PROFILE 2018-06-26 17:28:00* Test Item Value Reference Range Comments CREATINE KINASE (CK) (test code=CK) Units/L 39-308 CKMB (test code=CKMBT) NG/ML 0.5-5.0 CKMB INDEX (test code=CKMBI) 0.0-2.5 TROPONIN-I (test code=TROPI) NG/ML 0.00-0.06 Specimen comments: Clean CatchSpecimen comments: .- XR CHEST 1 [id number] 17:21:00 FAX: Sabrina Mcadams MD [phone] [place]: St: REG Name: TAISHA CARRASCO [facility] : [birth year] Age/S: 73/M [address] [facility] [employer] Unit #: [id number] Loc: [place], [place]: [place] [id number] Acct: [id number] Dis Date: Status: REG ER PHONE #: [phone] Exam Date: 06/26/2018 1714 FAX #: [phone] Reason: Syncope EXAMS: CPT CODE: [id number] XR CHEST 1 V 68207 REASON FOR EXAM: Syncope. COMPARISON: June 03, 2018. Chest, portable single frontal view. Port-A-Cath is in good position. The lungs are well-inflated and clear. Heart size is normal. Calcification of the ao rtic arch. No effusion or pneumothorax can be seen. Osseous structures appear to be intact. IMPRESSION: No acute cardiopulm onary disease. Location: [facility] Signed by Darlene Terrazas on 06/26/2018 [place] ramirez 172 Reported and signed by: Gaudencio chowdhury M.D. CC: Sabrina Mcadams MD Technologist: JORDI SHAIKH Trnscrd Date/Time/By: 06/26/2018 (1720) : By: [facility] PAGE 1 Signed Report FAX: Sabrina Mcadams MD [phone] [place]: St: REG Name: Ce VILLALTA [facility] : 1945 Age/S: 73/ M [address] [facility] Unit #: [id number] Loc: [place], [place]: [place] [id number] Acct: [id number] Dis Date: Sta tus: REG ER PHONE #: [phone] Exam Date: 06/26/2018 1714 FAX #: [phone] Reason: Synco pe EXAMS: CPT CODE: [id number] XR CHEST 1 V 39985 <Continued> Orig Print D/T: S: 06/26/2018 (1969) PAGE 2 Signed Report - CT HEAD/BRAIN W/O CONT 2018-06-26 17:20:00 FAX: Sabrina Mcadams MD [phone] [place]: St: REG Name: TAISHA DAN [facility] : Age/S: 73/M [facility] Unit: [id number] Loc: [place], [place]: [place] [id number] Acct: [id number] Dis Date: Status: REG ER PHONE #: [phone] Exam Date: 06/26/20182 FAX #: [phone] Reason: Syncope EXAMS: CPT CODE: [id number] CT HEAD/BRAIN W/O CONT 67840 CLINICAL HISTORY: Syncope. CT brain, unenhanced. Reformatted sagittal and coronal images. COMPARISON: June 03, 2018. Automated exposure control, it erative reconstruction technique, and/or adjustment of mA and/or kV accord ing to patient's size was utilized for optimum radiation dose reduction. An unenhanced study of the brain was performed. Similar cortical pattern is seen with encephalomalacia in the posterior lateral occi pital cortex having similar distribution.. No areas of edema. Hypodensit y in white matter likely represents chronic microvascular ischemia changes . Prominent calcifications of the vertebral arteries at the base of the b rain. Carotid siphon calcifications as well.. No hemorrhage, mass effect, or findings of CVA can be seen. No evidence of ventricular shift. The posterior fossa structures appear to be intact. Mild cerebel lar atrophy. Bone window settings do not show any evidence o f skull fracture. Visualized sinuses appear to be clear. . IMPRESSION: No acute appearing intracranial abnormality. Atrophy and chronic microvascular ischemia changes. No acute findings since the previous study. Location: 9 at 8746 Reported and signed by: Gaudencio Terrazas M.D. PAGE 1 Signed Report (CONTINUED) FAX: Sabrina Mcadams MD [phone] [place]: St: REG Name: TAISHA VILLALTA [facility] : 1945 Age/S: 73/M [address] [facility] Unit: [id number] Loc: [place]: [place] [id number] A cct: [id number] Dis Date: Status: REG ER PHONE #: [phone] Exam Date: 06/26/2018 1718 FAX #: [phone] Reason: Syncope EXAMS: CPT CODE: [id number] HEAD/BRAIN W/O CONT 12864 < Continued> CC: Sabrina Mcadams MD Technologist: HILARIA SHAIKH Trnscrd Dt/Tm: 06/26/2018 (3364) t.SDR.RCM Orig Print D/T: S: 06/26/2018 (1724 PAGE 2 Signed Report PROTHROMBIN TIME 2018-06-26 17:19:00* Test Item Value Reference Range Comments PROTHROMBIN TIME PATIENT (test code=PTP) 12.3 SECONDS 9.9-12.8 INTERNATIONAL NORMAL RATIO (test code=INR) 1.0 0.89-1.14 THE INR IS TO BE USED ONLY FOR MONITORING ORAL ANTICOAGULANTTHERAPY. THE FOLLOWING ARE SUGGESTED RANGES FROM THEAMERICAN COLLEGE OF CHEST PHYSICIANS:INDICATION INR VALUEPROPHYLAXIS OF VENOUS THROMBOSIS (ORTHOPEDIC SURGERY) 2.0 - 3.0PROPHYLAXIS OF VENOUS THROMBOSIS (OTHER THAN HIGH-RISK SURGERY) 2.0 - 3.0TREATMENT OF DEEP VEIN THROMBOSIS OR PULMONARY EMBOLISM 2.0 - 3.0PREVENTION OF SYSTEMIC EMBOLISM TISSUE HEART VALVES 2.0 - 3.0 ACUTE MYOCARDIAL INFARCTION (TO PREVENT SYSTEMIC EMBOLISM) 2.0 - 3.0 ACUTE MYOCARDIAL INFARCTION (TO PREVENT RECURRENT INFARCT) 2.5 - 3.0 VALVULAR HEART DISEASE 2.0 - 3.0 ATRIAL FIBRILATION 2.0 - 3.0BILEAFLET MECHANICAL VALVE IN AORTIC POSITION 2.0 - 3.0MECHANICAL PROSTHETIC VALVES (HIGH RISK) 2.5 - 3.5PRESENCE OF LUPUS ANTICOAGULANT OR ANTIPHOSPHOLIPID ANTIBODIES 2.5 - 3.5 Specimen comments: .THROMBOPLASTIN TIME [id number] 17:19:00* Test Item Value Reference Range Comments THROMBOPLASTIN TIME PARTIAL (test code=PTT) 34.90 SECONDS 25.86-36.07 [facility] Therapeutic Range - APTT of 55.8-85.4 secondscorrelates with plasma heparin concentration of 0.2-0.4 u/mL New range effective - 07/18/2016 Specimen comments: .CBC W/O [id number] 17:13:00* Test Item Value Reference Range Comments WHITE BLOOD CELL (test code=WBC) 15.4 K/mm3 4.5-11.0 RED BLOOD CELL (test code=RBC) 4.03 M/mm3 4.40-5.90 HEMOGLOBIN (test code=HGB) 12.0 gm/dL 13.0-17.0 HEMATOCRIT (test code=HCT) 36.6 % 36.0-48.0 MEAN CELL VOLUME (test code=MCV) 90.8 UM3 80.0-94.0 MEAN CELL HGB (test code=MCH) 29.8 UUG 25.5-32.5 MEAN CELL HGB CONCETRATION (test code=MCHC) 32.8 gm/dL 29.0-35.5 RED CELL DISTRIBUTION WIDTH (test code=RDW) 15.3 % 11.5-15.0 PLATELET COUNT (test code=PLT) 392 K/mm3 150-400 MEAN PLATELET VOLUME (test code=MPV) 10.0 fl 7.4-10.4 VIT B1 WHOLE [id number] 15:11:00* Test Item Value Reference Range Comments VIT B1 WHOLE BLOOD (test code=XTYN4LD) 75.7 nmol/L 66.5-200.0 This test was developed and its performance characteristicsdetermined by [employer]. It has not been cleared orapproved by the Food and Drug Administration.Performed At: [facility] [id number] Sanjai MD Ph:[phone] BASIC METABOLIC [id number] 08:06:00* Test Item Value Reference Range Comments SODIUM (test code=NA) 135 mEq/L 134-147 POTASSIUM (test code=K) 4.3 mEq/L 3.4-5.0 CHLORIDE (test code=CL) 107 mEq/L 100-108 CARBON DIOXIDE (test code=CO2) 20 mEq/L 21-33 ANION GAP (test code=GAP) 12 0-20 GLUCOSE (test code=GLU) 74 mg/dL 70-110 BLOOD UREA NITROGEN (test code=BUN) 13 mg/dL 7-18 GLOMERULAR FILTRATION RATE (test code=GFR) 34.9 70-80 Units of measure=ml/min/1.73 m2 CREATININE (test code=CREAT) 1.9 mg/dL 0.6-1.3 CALCIUM (test code=CA) 9.1 mg/dL 8.0-10.5 [id number] 08:06:00* Test Item Value Reference Range Comments PHOSPHOROUS (test code=PHOS) 3.2 mg/dL 2.5-4.9 [id number] 08:06:00* Test Item Value Reference Range Comments MAGNESIUM (test code=MAG) 2.10 mg/dL 1.8-2.4 CBC W/AUTO [id number] 08:23:00* Test Item Value Reference Range Comments WHITE BLOOD CELL (test code=WBC) 7.61 x10 3/uL 4.5-11.0 RED BLOOD CELL (test code=RBC) 3.66 x10 6/uL 4.00-5.60 HEMOGLOBIN (test code=HGB) 11.2 g/dL 12.5-16.9 HEMATOCRIT (test code=HCT) 35.1 % 37.5-50.7 MEAN CELL VOLUME (test code=MCV) 95.9 fL 81.0-99.0 MEAN CELL HGB (test code=MCH) 30.6 pg 27.0-33.0 MEAN CELL HGB CONCETRATION (test code=MCHC) 31.9 g/dL 33.0-37.0 RED CELL DISTRIBUTION WIDTH CV (test code=RDW) 14.6 % 11.5-14.5 RED CELL DISTRIBUTION WIDTH SD (test code=RDW-SD) 52.4 fL 37.0-54.0 PLATELET COUNT (test code=PLT) 584 x10 3/uL 150-400 MEAN PLATELET VOLUME (test code=MPV) 9.3 fL 7.0-9.0 NEUTROPHIL % (test code=NT%) 43.9 % 56.0-77.0 IMMATURE GRANULOCYTE % (test code=IG%) 0.3 % 0.0-2.0 LYMPHOCYTE % (test code=LY%) 34.3 % 14.0-32.0 MONOCYTE % (test code=MO%) 11.4 % 4.8-9.0 EOSINOPHIL % (test code=EO%) 8.4 % 0.3-3.7 BASOPHIL % (test code=BA%) 1.7 % 0.0-2.0 NUCLEATED RBC % (test code=NRBC%) 0.0 % 0-0 NEUTROPHIL # (test code=NT#) 3.34 x10 3/uL 2.0-7.6 IMMATURE GRANULOCYTE # (test code=IG#) 0.02 x10 3/uL 0.00-0.03 LYMPHOCYTE # (test code=LY#) 2.61 x10 3/uL 1.0-3.8 MONOCYTE # (test code=MO#) 0.87 x10 3/uL 0.1-0.8 EOSINOPHIL # (test code=EO#) 0.64 x10 3/uL 0.0-0.2 BASOPHIL # (test code=BA#) 0.13 x10 3/uL 0.0-0.2 NUCLEATED RBC # (test code=NRBC#) 0.00 x10 3/uL 0.0-0.1 MANUAL DIFF REQUIRED (test code=MDIFF) NO BASIC METABOLIC [id number] 07:49:00* Test Item Value Reference Range Comments SODIUM (test code=NA) 135 mEq/L 134-147 POTASSIUM (test code=K) 4.0 mEq/L 3.4-5.0 CHLORIDE (test code=CL) 106 mEq/L 100-108 CARBON DIOXIDE (test code=CO2) 23 mEq/L 21-33 ANION GAP (test code=GAP) 10 0-20 GLUCOSE (test code=GLU) 86 mg/dL 70-110 BLOOD UREA NITROGEN (test code=BUN) 15 mg/dL 7-18 GLOMERULAR FILTRATION RATE (test code=GFR) 31.1 70-80 Units of measure=ml/min/1.73 m2 CREATININE (test code=CREAT) 2.1 mg/dL 0.6-1.3 CALCIUM (test code=CA) 9.3 mg/dL 8.0-10.5 [id number] 07:49:00* Test Item Value Reference Range Comments PHOSPHOROUS (test code=PHOS) 3.8 mg/dL 2.5-4.9 [id number] 07:49:00* Test Item Value Reference Range Comments MAGNESIUM (test code=MAG) 2.10 mg/dL 1.8-2.4 BASIC METABOLIC [id number] 07:52:00* Test Item Value Reference Range Comments SODIUM (test code=NA) 134 mEq/L 134-147 POTASSIUM (test code=K) 4.0 mEq/L 3.4-5.0 CHLORIDE (test code=CL) 103 mEq/L 100-108 CARBON DIOXIDE (test code=CO2) 22 mEq/L 21-33 ANION GAP (test code=GAP) 13 0-20 GLUCOSE (test code=GLU) 76 mg/dL 70-110 BLOOD UREA NITROGEN (test code=BUN) 16 mg/dL 7-18 GLOMERULAR FILTRATION RATE (test code=GFR) 28.0 70-80 Units of measure=ml/min/1.73 m2 CREATININE (test code=CREAT) 2.3 mg/dL 0.6-1.3 CALCIUM (test code=CA) 9.2 mg/dL 8.0-10.5 [id number] 07:52:00* Test Item Value Reference Range Comments PHOSPHOROUS (test code=PHOS) 3.7 mg/dL 2.5-4.9 [id number] 07:52:00* Test Item Value Reference Range Comments MAGNESIUM (test code=MAG) 2.10 mg/dL 1.8-2.4 SED RATE [id number] 19:10:00* Test Item Value Reference Range Comments SED RATE WESTERGREN (test code=SEDW) 76 mm/hr 0-15 [id number] 18:08:00* Test Item Value Reference Range Comments AMMONIA (test code=AMM) < 10 umol/L 0-35 BASIC METABOLIC [id number] 08:10:00* Test Item Value Reference Range Comments SODIUM (test code=NA) 134 mEq/L 134-147 POTASSIUM (test code=K) 4.7 mEq/L 3.4-5.0 CHLORIDE (test code=CL) 102 mEq/L 100-108 CARBON DIOXIDE (test code=CO2) 24 mEq/L 21-33 ANION GAP (test code=GAP) 13 0-20 GLUCOSE (test code=GLU) 90 mg/dL 70-110 BLOOD UREA NITROGEN (test code=BUN) 16 mg/dL 7-18 GLOMERULAR FILTRATION RATE (test code=GFR) 25.4 70-80 Units of measure=ml/min/1.73 m2 CREATININE (test code=CREAT) 2.5 mg/dL 0.6-1.3 CALCIUM (test code=CA) 9.9 mg/dL 8.0-10.5 [id number] 08:10:00* Test Item Value Reference Range Comments PHOSPHOROUS (test code=PHOS) 5.1 mg/dL 2.5-4.9 [id number] 08:10:00* Test Item Value Reference Range Comments MAGNESIUM (test code=MAG) 2.30 mg/dL 1.8-2.4 BASIC METABOLIC [id number] 08:28:00* Test Item Value Reference Range Comments SODIUM (test code=NA) 134 mEq/L 134-147 POTASSIUM (test code=K) 4.1 mEq/L 3.4-5.0 CHLORIDE (test code=CL) 102 mEq/L 100-108 CARBON DIOXIDE (test code=CO2) 23 mEq/L 21-33 ANION GAP (test code=GAP) 13 0-20 GLUCOSE (test code=GLU) 72 mg/dL 70-110 BLOOD UREA NITROGEN (test code=BUN) 16 mg/dL 7-18 GLOMERULAR FILTRATION RATE (test code=GFR) 26.7 70-80 Units of measure=ml/min/1.73 m2 CREATININE (test code=CREAT) 2.4 mg/dL 0.6-1.3 CALCIUM (test code=CA) 9.6 mg/dL 8.0-10.5 [id number] 08:28:00* Test Item Value Reference Range Comments PHOSPHOROUS (test code=PHOS) 3.7 mg/dL 2.5-4.9 [id number] 08:28:00* Test Item Value Reference Range Comments MAGNESIUM (test code=MAG) 2.20 mg/dL 1.8-2.4 CBC W/AUTO [id number] 07:37:00* Test Item Value Reference Range Comments WHITE BLOOD CELL (test code=WBC) 9.26 x10 3/uL 4.5-11.0 RED BLOOD CELL (test code=RBC) 3.72 x10 6/uL 4.00-5.60 HEMOGLOBIN (test code=HGB) 11.3 g/dL 12.5-16.9 HEMATOCRIT (test code=HCT) 35.1 % 37.5-50.7 MEAN CELL VOLUME (test code=MCV) 94.4 fL 81.0-99.0 MEAN CELL HGB (test code=MCH) 30.4 pg 27.0-33.0 MEAN CELL HGB CONCETRATION (test code=MCHC) 32.2 g/dL 33.0-37.0 RED CELL DISTRIBUTION WIDTH CV (test code=RDW) 14.6 % 11.5-14.5 RED CELL DISTRIBUTION WIDTH SD (test code=RDW-SD) 50.4 fL 37.0-54.0 PLATELET COUNT (test code=PLT) 578 x10 3/uL 150-400 MEAN PLATELET VOLUME (test code=MPV) 9.7 fL 7.0-9.0 NEUTROPHIL % (test code=NT%) 46.0 % 56.0-77.0 IMMATURE GRANULOCYTE % (test code=IG%) 0.4 % 0.0-2.0 LYMPHOCYTE % (test code=LY%) 35.0 % 14.0-32.0 MONOCYTE % (test code=MO%) 9.2 % 4.8-9.0 EOSINOPHIL % (test code=EO%) 8.3 % 0.3-3.7 BASOPHIL % (test code=BA%) 1.1 % 0.0-2.0 NUCLEATED RBC % (test code=NRBC%) 0.0 % 0-0 NEUTROPHIL # (test code=NT#) 4.26 x10 3/uL 2.0-7.6 IMMATURE GRANULOCYTE # (test code=IG#) 0.04 x10 3/uL 0.00-0.03 LYMPHOCYTE # (test code=LY#) 3.24 x10 3/uL 1.0-3.8 MONOCYTE # (test code=MO#) 0.85 x10 3/uL 0.1-0.8 EOSINOPHIL # (test code=EO#) 0.77 x10 3/uL 0.0-0.2 BASOPHIL # (test code=BA#) 0.10 x10 3/uL 0.0-0.2 NUCLEATED RBC # (test code=NRBC#) 0.00 x10 3/uL 0.0-0.1 MANUAL DIFF REQUIRED (test code=MDIFF) NO BASIC METABOLIC [id number] 07:47:00* Test Item Value Reference Range Comments SODIUM (test code=NA) 137 mEq/L 134-147 POTASSIUM (test code=K) 4.1 mEq/L 3.4-5.0 CHLORIDE (test code=CL) 104 mEq/L 100-108 CARBON DIOXIDE (test code=CO2) 27 mEq/L 21-33 ANION GAP (test code=GAP) 10 0-20 GLUCOSE (test code=GLU) 76 mg/dL 70-110 BLOOD UREA NITROGEN (test code=BUN) 15 mg/dL 7-18 GLOMERULAR FILTRATION RATE (test code=GFR) 26.7 70-80 Units of measure=ml/min/1.73 m2 CREATININE (test code=CREAT) 2.4 mg/dL 0.6-1.3 CALCIUM (test code=CA) 9.5 mg/dL 8.0-10.5 [id number] 07:47:00* Test Item Value Reference Range Comments PHOSPHOROUS (test code=PHOS) 3.9 mg/dL 2.5-4.9 [id number] 07:47:00* Test Item Value Reference Range Comments MAGNESIUM (test code=MAG) 2.10 mg/dL 1.8-2.4 CBC W/AUTO [id number] 08:06:00* Test Item Value Reference Range Comments WHITE BLOOD CELL (test code=WBC) 7.89 x10 3/uL 4.5-11.0 RED BLOOD CELL (test code=RBC) 3.51 x10 6/uL 4.00-5.60 HEMOGLOBIN (test code=HGB) 10.6 g/dL 12.5-16.9 HEMATOCRIT (test code=HCT) 33.2 % 37.5-50.7 MEAN CELL VOLUME (test code=MCV) 94.6 fL 81.0-99.0 MEAN CELL HGB (test code=MCH) 30.2 pg 27.0-33.0 MEAN CELL HGB CONCETRATION (test code=MCHC) 31.9 g/dL 33.0-37.0 RED CELL DISTRIBUTION WIDTH CV (test code=RDW) 14.6 % 11.5-14.5 RED CELL DISTRIBUTION WIDTH SD (test code=RDW-SD) 50.3 fL 37.0-54.0 PLATELET COUNT (test code=PLT) 503 x10 3/uL 150-400 MEAN PLATELET VOLUME (test code=MPV) 9.4 fL 7.0-9.0 NEUTROPHIL % (test code=NT%) 39.6 % 56.0-77.0 IMMATURE GRANULOCYTE % (test code=IG%) 0.4 % 0.0-2.0 LYMPHOCYTE % (test code=LY%) 35.4 % 14.0-32.0 MONOCYTE % (test code=MO%) 12.0 % 4.8-9.0 EOSINOPHIL % (test code=EO%) 11.3 % 0.3-3.7 BASOPHIL % (test code=BA%) 1.3 % 0.0-2.0 NUCLEATED RBC % (test code=NRBC%) 0.0 % 0-0 NEUTROPHIL # (test code=NT#) 3.13 x10 3/uL 2.0-7.6 IMMATURE GRANULOCYTE # (test code=IG#) 0.03 x10 3/uL 0.00-0.03 LYMPHOCYTE # (test code=LY#) 2.79 x10 3/uL 1.0-3.8 MONOCYTE # (test code=MO#) 0.95 x10 3/uL 0.1-0.8 EOSINOPHIL # (test code=EO#) 0.89 x10 3/uL 0.0-0.2 BASOPHIL # (test code=BA#) 0.10 x10 3/uL 0.0-0.2 NUCLEATED RBC # (test code=NRBC#) 0.00 x10 3/uL 0.0-0.1 MANUAL DIFF REQUIRED (test code=MDIFF) NO BASIC METABOLIC [id number] 07:46:00* Test Item Value Reference Range Comments SODIUM (test code=NA) 136 mEq/L 134-147 POTASSIUM (test code=K) 3.9 mEq/L 3.4-5.0 CHLORIDE (test code=CL) 103 mEq/L 100-108 CARBON DIOXIDE (test code=CO2) 26 mEq/L 21-33 ANION GAP (test code=GAP) 11 0-20 GLUCOSE (test code=GLU) 90 mg/dL 70-110 BLOOD UREA NITROGEN (test code=BUN) 14 mg/dL 7-18 GLOMERULAR FILTRATION RATE (test code=GFR) 29.5 70-80 Units of measure=ml/min/1.73 m2 CREATININE (test code=CREAT) 2.2 mg/dL 0.6-1.3 CALCIUM (test code=CA) 9.4 mg/dL 8.0-10.5 [id number] 07:46:00* Test Item Value Reference Range Comments PHOSPHOROUS (test code=PHOS) 3.9 mg/dL 2.5-4.9 [id number] 07:46:00* Test Item Value Reference Range Comments MAGNESIUM (test code=MAG) 2.00 mg/dL 1.8-2.4 CBC W/AUTO [id number] 08:47:00* Test Item Value Reference Range Comments WHITE BLOOD CELL (test code=WBC) 8.73 x10 3/uL 4.5-11.0 RED BLOOD CELL (test code=RBC) 3.41 x10 6/uL 4.00-5.60 HEMOGLOBIN (test code=HGB) 10.5 g/dL 12.5-16.9 HEMATOCRIT (test code=HCT) 32.5 % 37.5-50.7 MEAN CELL VOLUME (test code=MCV) 95.3 fL 81.0-99.0 MEAN CELL HGB (test code=MCH) 30.8 pg 27.0-33.0 MEAN CELL HGB CONCETRATION (test code=MCHC) 32.3 g/dL 33.0-37.0 RED CELL DISTRIBUTION WIDTH CV (test code=RDW) 14.8 % 11.5-14.5 RED CELL DISTRIBUTION WIDTH SD (test code=RDW-SD) 51.6 fL 37.0-54.0 PLATELET COUNT (test code=PLT) 495 x10 3/uL 150-400 MEAN PLATELET VOLUME (test code=MPV) 10.0 fL 7.0-9.0 NEUTROPHIL % (test code=NT%) 41.9 % 56.0-77.0 IMMATURE GRANULOCYTE % (test code=IG%) 0.2 % 0.0-2.0 LYMPHOCYTE % (test code=LY%) 35.4 % 14.0-32.0 MONOCYTE % (test code=MO%) 11.9 % 4.8-9.0 EOSINOPHIL % (test code=EO%) 9.7 % 0.3-3.7 BASOPHIL % (test code=BA%) 0.9 % 0.0-2.0 NUCLEATED RBC % (test code=NRBC%) 0.0 % 0-0 NEUTROPHIL # (test code=NT#) 3.65 x10 3/uL 2.0-7.6 IMMATURE GRANULOCYTE # (test code=IG#) 0.02 x10 3/uL 0.00-0.03 LYMPHOCYTE # (test code=LY#) 3.09 x10 3/uL 1.0-3.8 MONOCYTE # (test code=MO#) 1.04 x10 3/uL 0.1-0.8 EOSINOPHIL # (test code=EO#) 0.85 x10 3/uL 0.0-0.2 BASOPHIL # (test code=BA#) 0.08 x10 3/uL 0.0-0.2 NUCLEATED RBC # (test code=NRBC#) 0.00 x10 3/uL 0.0-0.1 MANUAL DIFF REQUIRED (test code=MDIFF) NO BASIC METABOLIC [id number] 07:53:00* Test Item Value Reference Range Comments SODIUM (test code=NA) 137 mEq/L 134-147 POTASSIUM (test code=K) 3.8 mEq/L 3.4-5.0 CHLORIDE (test code=CL) 105 mEq/L 100-108 CARBON DIOXIDE (test code=CO2) 25 mEq/L 21-33 ANION GAP (test code=GAP) 11 0-20 GLUCOSE (test code=GLU) 69 mg/dL 70-110 BLOOD UREA NITROGEN (test code=BUN) 14 mg/dL 7-18 GLOMERULAR FILTRATION RATE (test code=GFR) 29.5 70-80 Units of measure=ml/min/1.73 m2 CREATININE (test code=CREAT) 2.2 mg/dL 0.6-1.3 CALCIUM (test code=CA) 9.6 mg/dL 8.0-10.5 [id number] 07:53:00* Test Item Value Reference Range Comments PHOSPHOROUS (test code=PHOS) 3.5 mg/dL 2.5-4.9 [id number] 07:53:00* Test Item Value Reference Range Comments MAGNESIUM (test code=MAG) 2.20 mg/dL 1.8-2.4
[2019-03-21 11:44] LABS: BASOPHILS # (AUTO) 0.1 (0.0-0.1); BASOPHILS % 0.6 % (0.0-1.0); EOSINOPHILS # (AUTO) 0.2 (0.0-0.4); EOSINOPHILS % 1.2 % (0.0-6.0); HEMOGLOBIN 12.2 g/dL (14.0-18.0); LYMPHOCYTES # (AUTO) 2.7 (1.0-3.2); LYMPHOCYTES % 16.1 % (18.0-39.1); MEAN CORPUSCULAR HEMOGLOBIN 25.9 pg (28-32); MEAN CORPUSCULAR HGB CONC 32.1 g/dL (31-35); MEAN CORPUSCULAR VOLUME 80.7 fL (81-99); MONOCYTES # (AUTO) 1.9 (0.2-0.8); MONOCYTES % 11.4 % (4.4-11.3); NEUTROPHILS # (AUTO) 11.9 (2.1-6.9); NEUTROPHILS % 70.2 % (38.7-80.0); PLATELET COUNT 451 x10e3/uL (140-360); RED BLOOD COUNT 4.71 x10e6/uL (4.3-5.7); RED CELL DISTRIBUTION WIDTH 16.9 % (11.7-14.4)
[2019-03-21 12:04] LABS: INR 0.96; PROTHROMBIN TIME 13.3 seconds (11.9-14.5)
[2019-03-21 12:05] LABS: PARTIAL THROMBOPLASTIN TIME 33.4 seconds (23.8-35.5)
[2019-03-21 12:06] LABS: ALBUMIN 2.9 g/dL (3.5-5.0); ALBUMIN/GLOBULIN RATIO 0.6 (0.8-2.0); ANION GAP 13.5 mmol/L (8-16); CALCIUM 10.1 mg/dL (8.4-10.2); CREATININE, SERUM 2.41 mg/dL (0.72-1.25); POTASSIUM 4.5 mmol/L (3.5-5.1)
[2019-03-21 12:25] LABS: CREATINE KINASE MB 1.7 ng/mL (0-5.0)
[2019-03-21] MEDS: PIPERACILLIN/TAZO 2.25 GM 50 ML IV SCH ×2 (12:32→20:18)
[2019-03-21 12:33] LABS: BILIRUBIN,URINE NEGATIVE (NEGATIVE); CLARITY,URINE CLEAR (CLEAR); COLOR,URINE YELLOW (YELLOW); KETONES,URINE NEGATIVE (NEGATIVE); LEUKOCYTE ESTERASE ,URINE TRACE (NEGATIVE); NITRITE,URINE NEGATIVE (NEGATIVE); PROTEIN,URINE DIPSTICK 2+ (NEGATIVE); URINE UROBILINOGEN 0.2 mg/dL (0.2 - 1)
[2019-03-21 12:41] LABS: BACTERIA,URINE FEW /HPF
[2019-03-21 12:42] LABS: EPITHELIAL CELLS,URINE FEW /LPF
[2019-03-21 12:44] LABS: WBC,URINE (MAN) 21-50 /HPF (0-5)
[2019-03-21 12:45] LABS: AMORPHOUS SEDIMENT,URINE FEW (FEW)
[2019-03-21] MEDS ORDERED: SODIUM CHLORIDE 0.9% 1000ML 1,000 ML IV ONE (12:45)
[2019-03-21] MEDS ORDERED: ONDANSETRON HCL INJ 2MG/ML 2ML 2 MG/ML VIAL IV PRN (12:45)
[2019-03-21] MEDS ORDERED: ACETAMINOPHEN 325 MG TAB PO PRN (12:45)
[2019-03-21] MEDS ORDERED: LOW DOSE ASPIRI81 MG PO (13:16)
[2019-03-21] MEDS ORDERED: LOSARTAN POTASS25 MG PO (13:16)
[2019-03-21] MEDS ORDERED: PROBIOTIC & AC1 EACH PO (13:16)
--- NOTE | 2019-03-21 16:42 | NUR ---
Recvd patient from ER, AAOx3, Denies any pain, not in any distress, assisted him to bed, call light in reach, skin is intact, at bed side
[2019-03-21 16:56] VITALS: BP 139/77
[2019-03-21 17:06] VITALS: BP 119/69
[2019-03-21 17:46] VITALS: BP 119/69
--- NOTE | 2019-03-21 19:15 | NUR ---
Patient visited in room during nursing rounds. Patient alert and oriented x3. No distress or discomfort noted. Pt afebrile at this time. at bedside. Pt ambulatory in room prn. Call christian within reach.
[2019-03-21 19:40] LABS: CREATINE KINASE MB 1.5 ng/mL (0-5.0)
[2019-03-21 20:31] VITALS: BP 166/99
[2019-03-22] VITALS (8 sets, daily range): BP systolic 128–156; BP diastolic 61–84
[2019-03-22] MEDS ORDERED: SODIUM CHLORIDE 0.9% 250ML 250 ML ONE (04:34)
[2019-03-22] MEDS: PIPERACILLIN/TAZO 2.25 GM 50 ML IV SCH ×3 (04:40→20:44)
[2019-03-22] MEDS ORDERED: LOSARTAN POTASSIUM 25 MG TAB PO PRN (05:30)
[2019-03-22 05:43] LABS: ALBUMIN 2.7 g/dL (3.5-5.0); ALBUMIN/GLOBULIN RATIO 0.7 (0.8-2.0); ANION GAP 13.5 mmol/L (8-16); CALCIUM 9.8 mg/dL (8.4-10.2); CREATININE, SERUM 2.4 mg/dL (0.72-1.25); POTASSIUM 4.5 mmol/L (3.5-5.1)
[2019-03-22 05:59] LABS: CREATINE KINASE MB 1.8 ng/mL (0-5.0)
[2019-03-22] MEDS: LEVOTHYROXINE SODIUM 50 MCG TAB PO SCH (06:24)
[2019-03-22 07:49] LABS: BASOPHILS # (AUTO) 0.1 (0.0-0.1); BASOPHILS % 0.7 % (0.0-1.0); EOSINOPHILS # (AUTO) 0.3 (0.0-0.4); EOSINOPHILS % 2.3 % (0.0-6.0); HEMATOCRIT 35.8 % (38.2-49.6); HEMOGLOBIN 11.3 g/dL (14.0-18.0); LYMPHOCYTES # (AUTO) 2.8 (1.0-3.2); LYMPHOCYTES % 20.7 % (18.0-39.1); MEAN CORPUSCULAR HEMOGLOBIN 25.4 pg (28-32); MEAN CORPUSCULAR HGB CONC 31.6 g/dL (31-35); MEAN CORPUSCULAR VOLUME 80.4 fL (81-99); MONOCYTES # (AUTO) 1.7 (0.2-0.8); MONOCYTES % 12.4 % (4.4-11.3); NEUTROPHILS # (AUTO) 8.6 (2.1-6.9); NEUTROPHILS % 63.5 % (38.7-80.0); PLATELET COUNT 445 x10e3/uL (140-360); RED BLOOD COUNT 4.45 x10e6/uL (4.3-5.7); RED CELL DISTRIBUTION WIDTH 16.9 % (11.7-14.4)
[2019-03-22] MEDS: LACTOBACILLUS ACIDOPHILUS CAPSULE PO SCH (09:35)
[2019-03-22] MEDS: MIDODRINE HCL 5 MG TABLET PO SCH ×3 (09:35→20:44)
[2019-03-22] MEDS: FLUDROCORTISONE ACETATE 0.1 MG TAB PO SCH (09:35)
[2019-03-22] MEDS: OXYBUTYNIN CHLORIDE 5 MG TAB PO SCH ×3 (09:35→20:44)
[2019-03-23] VITALS (7 sets, daily range): BP systolic 123–161; BP diastolic 69–91
[2019-03-23] MEDS: PIPERACILLIN/TAZO 2.25 GM 50 ML IV SCH ×2 (04:09→12:05)
[2019-03-23] MEDS: LEVOTHYROXINE SODIUM 50 MCG TAB PO SCH (05:33)
--- NOTE | 2019-03-23 07:00 | NUR ---
BEDSIDE SHIFT REPORT RECEIVED FROM THE SOFTWARE DEVELOPER MID LEVEL RN. EDUCATED PT ABOUT FALL PRECAUTIONS. CALL LIGHT WITH IN EASY REACH. INSTRUCTED PT TO USE CALL LIGHT FOR ALL THE NEEDS. PT VERBALIZED UNDERSTANDING. FAMILY AT BEDSIDE. BED IS LOW AND LOCKED . SIDE RAILS X2. PT DENIES NEEDS AT THIS TIME.
[2019-03-23] MEDS: MIDODRINE HCL 5 MG TABLET PO SCH ×2 (08:14→15:00)
[2019-03-23] MEDS: OXYBUTYNIN CHLORIDE 5 MG TAB PO SCH ×2 (08:15→18:10)
[2019-03-23] MEDS: LACTOBACILLUS ACIDOPHILUS CAPSULE PO SCH (08:15)
--- NOTE | 2019-03-23 08:18 | NUR ---
PT REFUSED FALL PREVENTION SOCKS.
--- NOTE | 2019-03-23 10:00 | NUR ---
PAGED PHARMACY REGARDING FLUDROCORTISONE.
[2019-03-23] MEDS: FLUDROCORTISONE ACETATE 0.1 MG TAB PO SCH (12:05)
--- NOTE | 2019-03-23 14:14 | Progress Note ---
DATE: SUBJECTIVE: The patient states he is feeling better overall. He has no new complaints. OBJECTIVE: VITAL SIGNS: Stable. He is afebrile. GENERAL: No apparent distress. CARDIOVASCULAR: Regular rate and rhythm. LUNGS: Clear to auscultation bilaterally. ABDOMEN: Good bowel sounds, soft, nontender. EXTREMITIES: No clubbing or cyanosis. NEUROLOGIC: Nonfocal. LABORATORY DATA: Urine cultures are growing out gram-negative rods. ASSESSMENT AND PLAN: 1. Urinary tract infection. Continue with antibiotics. Await for culture data. 2. Hypertension. Continue to monitor. 3. Chronic kidney disease stage 3. Continue to monitor. 4. History of renal cancer. Continue with current care per Urology. Please see hospital chart for full details. MD KINA Cruz/SEA /[id number]
--- NOTE | 2019-03-23 19:00 | NUR ---
BEDSIDE SHIFT REPORT GIVEN TO THE SMALL WIND ENERGY INSTALLER RN. PT DENIED FURTHER NEEDS.
[2019-03-23] MEDS ORDERED: CEFUROXIME250 MG PO (19:09)
== END 2019-03-23 20:32 | disposition home or self-care (01) | DRG 690 ==
LOC: ER 10:55 → ERHOLD 12:42 → MED/SURG2 16:38
PROVIDERS: ADMIT Internal Medicine; ATTEND Internal Medicine
DX: N39.0 Urinary tract infection, site not specified (principal); Z85.528 Personal history of other malignant neoplasm of kidney; I12.9 Hypertensive chronic kidney disease with stage 1 through stage 4 chronic kidney disease, or unspecified chronic kidney disease; N18.3 Chronic kidney disease, stage 3 (moderate); D64.9 Anemia, unspecified
CPT/HCPCS: 36415; 80053; 81001; 82550; 82553; 83605; 84484; 85025; 85610; 85730; 87040; 87086; 87186; 87400; 99284; J2543; J7030; J7050

== ENCOUNTER → 2019-06-06 | Day surgery (SDC) | payer OTHER ==
[2019-06-05 13:29] LABS: BASOPHILS # (AUTO) 0.1 (0.0-0.1); BASOPHILS % 0.9 % (0.0-1.0); EOSINOPHILS # (AUTO) 0.5 (0.0-0.4); EOSINOPHILS % 3.7 % (0.0-6.0); HEMATOCRIT 41.5 % (38.2-49.6); HEMOGLOBIN 13.1 g/dL (14.0-18.0); LYMPHOCYTES # (AUTO) 3.1 (1.0-3.2); MEAN CORPUSCULAR HEMOGLOBIN 26.5 pg (28-32); MEAN CORPUSCULAR HGB CONC 31.6 g/dL (31-35); MEAN CORPUSCULAR VOLUME 83.8 fL (81-99); MONOCYTES # (AUTO) 1.6 (0.2-0.8); MONOCYTES % 12.7 % (4.4-11.3); NEUTROPHILS # (AUTO) 7.1 (2.1-6.9); NEUTROPHILS % 57.2 % (38.7-80.0); PLATELET COUNT 462 x10e3/uL (140-360); RED BLOOD COUNT 4.95 x10e6/uL (4.3-5.7); RED CELL DISTRIBUTION WIDTH 19.3 % (11.7-14.4)
--- NOTE | 2019-06-05 13:50 | Diagnostic Imaging Report ---
EXAMINATION: CHEST 2 VIEWS INDICATION: Pre-operative COMPARISON: Chest radiograph 03/20/2019 FINDINGS: LINES/TUBES:Right chest port with tip in IVC. LUNGS:The lungs are well-inflated. No focal consolidation or pulmonary edema. PLEURA:No pleural effusion or pneumothorax. MEDIASTINUM:The cardiomediastinal silhouette appears normal in size and shape. Atherosclerotic calcifications of the thoracic aorta. BONES/SOFT TISSUES:No acute osseous injury. ABDOMEN:No free air under the diaphragm. IMPRESSION: No focal pneumonia or pulmonary edema. Signed by: Jim Ordonez MD on 06/05/2019 1:47 PM
[2019-06-05 13:54] LABS: ALBUMIN 3.1 g/dL (3.5-5.0); ALBUMIN/GLOBULIN RATIO 0.7 (0.8-2.0); ANION GAP 13.8 mmol/L (8-16); CALCIUM 9.4 mg/dL (8.4-10.2); CREATININE, SERUM 2.13 mg/dL (0.72-1.25); POTASSIUM 4.8 mmol/L (3.5-5.1)
[~2019-06-06] MED LIST changes: +BUPIVACAINE HCL 0.5% INJ 30 ML VIAL INJ ONE; +CEFUROXIME250 MG PO; +CLINDAMYCIN 300MG 50 ML IV ONE; +DEXAMETHASONE SOD PHOS INJ 4 MG/ML VIAL ONE; +FENTANYL CITRATE/PF 100MCG/2 ML INJ ONE; +HYDROCORTISONE SOD SUCCINATE 100 MG VIAL ONE; +HYDROCORTISONE10 MG PO; +LIDOCAINE 2%/ EPINEPHRINE 20ML MDV ONE; +LIDOCAINE HCL 2% LOCAL INJ 5 ML SDV VIAL INJ ONE; +LOSARTAN POTASS25 MG PO; +LOW DOSE ASPIRI81 MG PO; +MEROPENEM 1GM 100 ML IV ONE; +MIDAZOLAM HCL 2 MG/2 ML VIAL ONE; +ONCE DAILY1 EACH PO; +ONDANSETRON HCL INJ 2MG/ML 2ML 2 MG/ML VIAL ONE; +PHENYLEPHRINE HCL 1% 10 MG/ML VIAL ONE; +PROBIOTIC & AC1 EACH PO; +PROPOFOL IV EMULSION 10 MG/ML 20 ML VIAL ONE; +SEVOFLURANE INHAL SOLN 250 ML PEN BTL ONE
[2019-06-06 14:30] VITALS: BP 142/85
--- NOTE | 2019-07-09 02:04 | Operative Report ---
DATE OF PROCEDURE: 06/06/2019 SURGEON: Roderick Mcmanus MD PREOPERATIVE DIAGNOSIS: Refractory urge incontinence. POSTOPERATIVE DIAGNOSIS: Refractory urge incontinence. OPERATION PERFORMED: 1. Explantation of right InterStim lead ray. 2. Incision and implantation of tined quadripolar lead electrodes into the right foramen S3. 3. Implantation of InterStim sacral nerve neurostimulator with removal of prior neurostimulator. 4. Fluoroscopic guidance for needle placement. 5. Electronic analysis and complex programming. 6. Supervision of fluoroscopy, no radiologist present. ANESTHESIA: General. COMPLICATIONS: None. CLINICAL SUMMARY: Tomas Hood is a 74-year-old man with refractory urge incontinence. He has successful InterStim implantation. The patient has lost weight due in part due to his advanced cancer. His implant is no longer working appropriately. He is brought for the above procedures. He is aware of the risks of bleeding, infection, injury to adjacent structures, need for additional procedures, and elected to proceed. OPERATIVE PROCEDURE IN DETAIL: Informed consent was verified. Tomas Hood was properly identified, taken to the operating room, where anesthesia was uneventfully begun. The patient was then carefully and gently repositioned in the prone with all pressure points carefully well padded. His back and buttocks were prepared and draped in usual sterile fashion. Incision was made overlying the system lead. We dissected down until we reached that lead. We placed on gentle traction of the lead until its gateway and we were able to extract it. Second incision was made overlying the neurostimulator. We exposed the neurostimulator and extracted it and removed the lead. We then incised the pocket in order to accommodate the new implant. A needle was then introduced into the right foramen S3. Depth of the needle was confirmed and adjusted fluoroscopically. Proper needle position was confirmed by direct observation of lifting of the perineum and observation of plantar flexion of the great toe utilizing the external stimulator. The needle stylet was then removed and directional guidewire was then placed and confirmed fluoroscopically. The foramen needle was then removed. We used the existing incision. The dilator and introducer sheath were placed over the directional guidewire and directed into the foramen until the opaque marker of the dilator was seen midway through the sacrum. The dilator obturator was then unlocked and removed and the lead was then placed through the introducer sheath to the first white line. Position was checked fluoroscopically and the lead was then further advanced until 3 electrodes were visible anterior to the sacrum. Each electrode was tested for the appropriate responses as mentioned above. After satisfactory positioning was confirmed under continuous fluoroscopy, the introducer sheath was retracted, thus deploying the lead tines to the parasacral tissue. A tunneling tool and tube were then utilized from the lead incision to the pocket site. Tunneling tool was then removed and the lead was fed through the tube and pulled out the pocket site. The lead was then cleansed of bodily fluids with sterile water and dried thoroughly. It was then inserted into the InterStim pulse generator with the metal bands aligned and the blue tip clearly visible in the distal portion of the pulse generator header. The single set screw was tightened with a hex wrench. Copious irrigation was performed in both incisions. We infiltrated throughout both its incisions with local anesthetic for postoperative pain control. The pulse generator was then placed in the subcutaneous pocket and the programming head was then placed over the implanted neurostimulator. Impedance parameters were all within appropriate levels on interrogation of the implant. Both incisions were then approximated in 2 layers utilizing absorbable sutures. Mastisol and Steri-Strips were applied bilaterally as well as Bioclusive dressings. The sponge, needle, and instrument counts were recorded as correct x2 at the end of the case. There were no complications to the procedure. He tolerated the procedure well. The patient was transferred to the recovery room in satisfactory condition. Utilizing the clinician system programmer, the patient was programmed to the lead of optimum sensation and given explicit instructions on how to use the stimulator controller. Roderick Mcmanus MD [place]/MODL /[id number] cc: Higinio Leonardo MD
== END | disposition home or self-care (01) ==
LOC: OR 09:08
PROVIDERS: ATTEND Urology
DX: T85.890A Other specified complication of nervous system prosthetic devices, implants and grafts, initial encounter (principal); N39.41 Urge incontinence; C80.1 Malignant (primary) neoplasm, unspecified; C79.00 Secondary malignant neoplasm of unspecified kidney and renal pelvis; I10 Essential (primary) hypertension; E03.9 Hypothyroidism, unspecified; K21.9 Gastro-esophageal reflux disease without esophagitis; Y83.8 Other surgical procedures as the cause of abnormal reaction of the patient, or of later complication, without mention of misadventure at the time of the procedure; Z01.810 Encounter for preprocedural cardiovascular examination; Z01.812 Encounter for preprocedural laboratory examination; Z01.818 Encounter for other preprocedural examination; Z79.52 Long term (current) use of systemic steroids; Z79.82 Long term (current) use of aspirin
CPT/HCPCS: 36415; 71046; 76000; 80053; 85025; 88300; 93005; C1778; C1894; J1100; J1720; J2001; J2250; J2370; J2405; J3010; L8679